=== PATIENT | female | born 1995 | race Caucasian/White ===

== ENCOUNTER 2023-04-20 22:29 | Observation (INO) | payer BC, OTHER ==
[2023-04-20] MEDS ORDERED: Sodium Chloride 0.9% 1000 ML 1,000 ML IV STA (22:57)
[2023-04-20] MEDS ORDERED: Zofran 4 MG/2 ML VIAL IV ONE (23:06)
[2023-04-20] MEDS ORDERED: Sodium Chloride 0.9% 1000 ML 1,000 ML ONE (23:06)
[2023-04-20] MEDS ORDERED: Zofran 4 MG/2 ML VIAL ONE (23:07)
[2023-04-20 23:11] LABS: BASOPHIL % 0.8 % (0.0-0.4); Basophil (Absolute #) 0.04 x10^3/uL (0-0.4); Eosinophil % 10.2 % (0.00-5.0); Eosinophil (Absolute #) 0.48 x10^3/uL (0-0.5); Hematocrit 42.4 % (35-47); Hemoglobin 14.6 g/dL (12.0-16.0); IMMATURE GRAN # 0.01 x10^3u/L (0.00-0.03); IMMATURE GRAN % 0.2 % (0.00-0.4); Lymphocyte (Absolute #) 1.25 x10^3/uL (1.0-4.6); Lymphocytes % 26.5 % (24.0-44.0); Mean Cell Volume 92.6 fL (78-100); Mean Corpuscular Hemoglobin 31.9 pg (26-32); Mean Corpuscular Hgb Concent. 34.4 g/dL (32-36); Mean Platelet Volume 9.2 fL (7.5-11.0); Monocyte (Absolute #) 0.44 x10^3/uL (0.0-1.3); Monocytes % 9.3 % (0.0-12.0); Platelet Count 277 x10^3/uL (150-450); Red Blood Count 4.58 x10^6/uL (4.1-5.4); Red Cell Distribution Width 10.8 % (11.5-14.0); White Blood Count 4.7 x10^3/uL (4.0-10.5)
--- NOTE | 2023-04-20 23:17 | XRAY ---
CLINICAL HISTORY: FALL TECHNIQUE: Thin axial CT of the cervical spine was performed with sagittal and coronal reconstructions without contrast. COMPARISON: None FINDINGS: Straightening of the cervical spine due to muscle spasm. The vertebral bodies are normal in height. No lytic or sclerotic bone lesion. The craniovertebral measures are unremarkable. Intervertebral disc spaces are well maintained. No fracture or dislocation is seen. No evidence of facet joint hypertrophy or neural formainal stenosis. Pre-vertebral soft tissues are within normal limits. An incidental note is made of mild mucosal thickening in bilateral maxillary sinuses and right ethmoid air cells with a small air-fluid level in the right maxillary sinus. IMPRESSION: No evidence of acute fracture or dislocation. Straightening of the cervical spine due to muscle spasm. Electronically Signed by: Halreen Turner MD. (04/20/2023 23:14:12 EST)
--- NOTE | 2023-04-20 23:17 | XRAY ---
CLINICAL HISTORY: syncope TECHNIQUE: Axial non-contrast CT scan of the brain was performed from the skull base to the high parietal region. Coronal and sagittal reconstructions were also obtained. COMPARISON: None. FINDINGS: The visualized brain parenchyma shows a normal appearance. Martinez-white matter differentiation is maintained. No midline shifts or deformity. No intracerebral or extra axial hematoma. Normal size and configuration of the cerebral ventricles. Normal CT appearance of the posterior fossa structures namely the cerebellar hemispheres, brainstem and cerebellar peduncles. The IACs are unremarkable. The cerebello-pontine angles are clear. The osseous structures in the skull base are unremarkable. No definite calvarium fractures. The scanned paranasal sinuses show mild mucosal thickening in bilateral maxillary sinuses. IMPRESSION: No CT delineable acute abnormalities are seen in present study. Early changes of stroke may not be detected on a CT scan. If strong clinical suspicion of stroke then suggest MRI with diffusion-weighted imaging. The [facility] was called at [phone] at 10:09 PM [employer], 04/20/2023, and Dr. Hylton Porter been informed about negative results for stroke. Electronically Signed by: Harleen Turner MD. (04/20/2023 23:13:45 EST)
[2023-04-20 23:24] LABS: ACETAMINOPHEN < 10 ug/ml (10-30); ALBUMIN 4.7 g/dL (3.5-5.0); ALKALINE PHOSPHATASE 83 U/L (38-126); ANION GAP 16.4 MEQ/L (5-15); BLOOD UREA NITROGEN 6 mg/dL (7-17); CHLORIDE 103 mmol/L (98-107); Calcium 9.1 mg/dL (8.4-10.2); Carbon Dioxide 22 mmol/L (22-30); EST GLOMERULAR FILTRATION RATE 124.5 ML/MIN; ETHYL ALCOHOL 251 mg/dL (0-10); Glucose 84 mg/dL (74-106); Potassium 3.9 mmol/L (3.5-5.1); SALICYLATE < 1.0 mg/dL (2-20); SGOT/AST 45 U/L (14-36); SGPT/ALT 45 U/L (0-35); SODIUM 137 mmol/L (137-145); Total Protein 7.8 g/dL (6.3-8.2)
[2023-04-20 23:28] LABS: HCG SERUM TEST NEGATIVE (NEGATIVE)
[2023-04-20 23:32] LABS: Amphetamine,Urine NEGATIVE (NEGATIVE); Barbiturate,Urine NEGATIVE (NEGATIVE); Benzodiazepine,Urine NEGATIVE (NEGATIVE); Cocaine,Urine NEGATIVE (NEGATIVE); Methadone,Urine NEGATIVE (NEGATIVE); Opiate,Urine NEGATIVE (NEGATIVE); PCP,Urine NEGATIVE (NEGATIVE); THC,Urine NEGATIVE (NEGATIVE)
[2023-04-20 23:56] LABS: INFLUENZA A NEGATIVE (NEGATIVE); INFLUENZA B NEGATIVE (NEGATIVE); RESPIRATORY SYNCTIAL VIRUS NEGATIVE (NEGATIVE); SARS-CoV-2 Xpert Express NEGATIVE (NEGATIVE)
--- NOTE | 2023-04-21 00:07 | ERPHSYRPT ---
- History of Present Illness Source: patient, family, EMS Exam Limitations: clinical condition Patient Subjective Stated Complaint: vomiting, syncope Triage Nursing Assessment: pt brought in by EMS. Pt was found down at home, difficult to arouse. Upon arrival to ER, pt's eyes were open and awake, pt going in and out of consciousness. Pt's pupils 4mm, reactive. Pt has had nausea and vomiting at home today, hasn't ate much today. Pt's hands and legs are retracted. Lungs clear, heart tones reg. Pt's eyelids are both swollen and tongue is slightly swollen. Physician History: 28-year-old female who presents per EMS with altered mental status. EMS stated that patient was found on the floor by unresponsive after initially feeling nauseated. Patient's children are home with the flu and patient has not felt well all day. Patient arrived to the ER with a good airway and vital signs but with intermittent altered level consciousness. Patient was raised to the radiology suite where a CT was performed of her head which was negative per rad. denies any new medications. Timing/Duration: today Severity: moderate Character of Deficits: other (Intermittent altered level consciousness.) Baseline/Normal Cognition: alert oriented x 3 Current Cognition: poor alertness (Very somnolent and mildly confused) Associated Symptoms: confusion, nausea, vomiting Allergies/Adverse Reactions: No Known Drug Allergies Allergy (Verified 04/21/23 05:33) Home Medications: Dextroamphetamine/Amphetamine [Adderall Xr 10 mg Capsule] 10 mg PO DAILY 04/20/23 [History] Hx Tetanus, Diphtheria Vaccination/Date Given: (unknown) Hx Influenza Vaccination/Date Given: No Hx Pneumococcal Vaccination/Date Given: No Immunizations Up to Date: No Travel Risk - International Travel Have you traveled outside of the country in past 3 weeks: No - Coronavirus Screening Are you exhibiting any of the following symptoms?: Yes Symptoms: Vomiting/Diarrhea, Headaches/Body Aches/Fatigue Close contact with a COVID-19 positive Pt in past 14-21 Days: No - Vaccine Status Have you recieved a Covid-19 vaccination: No - Review of Systems Constitutional: No Symptoms, Malaise Eyes: No Symptoms Ears, Nose, & Throat: No Symptoms Respiratory: No Symptoms Cardiac: No Symptoms Abdominal/Gastrointestinal: No Symptoms, Nausea, Vomiting Genitourinary Symptoms: No Symptoms Musculoskeletal: No Symptoms Skin: No Symptoms Neurological: Other (Altered level consciousness) Psychological: No Symptoms Endocrine: No Symptoms Hematologic/Lymphatic: No Symptoms Immunological/Allergic: No Symptoms - Past Medical History Pertinent Past Medical History: Yes Neurological History: No Pertinent History ENT History: No Pertinent History Cardiac History: No Pertinent History Respiratory History: No Pertinent History Endocrine Medical History: No Pertinent History Musculoskeletal History: No Pertinent History GI Medical History: No Pertinent History History: No Pertinent History Psycho-Social History: Attention Deficit Disorder Female Reproductive Disorders: No Pertinent History Other Medical History: dog bite. seasonal allergies - Past Surgical History Past Surgical History: Yes Neuro Surgical History: No Pertinent History Cardiac: No Pertinent History Respiratory: No Pertinent History Gastrointestinal: No Pertinent History Genitourinary: No Pertinent History Musculoskeletal: Orthopedic Surgery Female Surgical History: No Pertinent History Other Surgical History: throat nodules. fx arm - Social History Smoking Status: Former smoker Exposure to second hand smoke: No Drug Use: none Patient Lives Alone: No - Female History Hx Last Menstrual Period: 04/16/23 Hx Now: No - Nursing Vital Signs Nursing Vital Signs: Initial Vital Signs Pulse Rate 107 H 04/20/23 22:57 Respiratory Rate 18 04/20/23 22:57 Blood Pressure 134/92 04/20/23 22:57 O2 Sat by Pulse Oximetry 97 04/20/23 22:57 Pain Scale Pain Intensity 0 Mildly hypertensive/tachycardic - [place] Coma Scale Best Eye Response ([place]): (3) open to voice Best Verbal Response ([place]): (4) confused conversation Best Motor Response ([place]): (6) obeys commands [place] Total: 13 - Physical Exam General Appearance: lethargy Eye Exam: bilateral eye: normal inspection, PERRL, EOMI Ears, Nose, Throat Exam: normal ENT inspection, TMs normal, pharynx normal, moist mucous membranes Neck Exam: normal inspection, non-tender, supple, full range of motion, No meningismus, No mass, No Brudzinski, No Kernig's, No carotid bruit Respiratory: normal breath sounds, lungs clear, airway intact Cardiovascular: tachycardia Gastrointestinal: soft, normal bowel sounds Back Exam: normal inspection, normal range of motion Extremity Exam: normal inspection, normal range of motion Peripheral Pulses: carotid (R): 2+, carotid (L): 2+ Mental Status: depressed affect, lethargy brick layer Exam: normal speech, PERRL Motor/Sensory: no motor deficit, no sensory deficit, no pronator drift, negative Babinski's sign DTR: bicep (R): 2+, bicep (L): 2+ Skin Exam: normal color, warm, dry, No rash SpO2 Interpretation: normal SpO2: 98 O2 Delivery: Room Air - Course Nursing assessment & vital signs reviewed: Yes EKG Interpreted by Me: RATE (Sinus tachycardia/rate 101/normal QT-QTc/flat T waves/incomplete right bundle branch block/interpreted contemporaneously per ER physician.) - CT Exams Head CT Interpretation: Tele-radiologist Report (CT of the head negative per teleread/CTA of the head negative per telerad/CT of the neck negative per telerad) Cervical Spine CT Interpretation: Tele-radiologist Report (CT C-spine negative per telerad) Ordered Tests: Active Orders 24 hr Category Date Time Status EKG-ER Only STAT Care 04/20/23 22:33 Completed House Regular Diet Diet 04/21/23 Breakfast Active CERVICAL SPINE WO CONTRAST [CT] Stat Exams 04/20/23 22:[address] ANGIOGRAPHY NECK [CT] Stat Exams 04/21/23 01:54 Completed CTA HEAD W AND/OR WO CONTRAST [CT] Stat Exams 04/21/23 01:51 Completed HEAD WITHOUT CONTRAST [CT] Stat Exams 04/20/23 22:31 Completed ACETAMINOPHEN Stat Lab 04/20/23 23:00 Completed BMP Stat Lab 04/21/23 01:15 Completed CBC W DIFF Stat Lab 04/20/23 23:00 Completed CMP Stat Lab 04/20/23 23:00 Completed CULTURE,URINE Stat Lab 04/20/23 22:59 Received ETHYL ALCOHOL Stat Lab 04/20/23 23:00 Completed ETHYL ALCOHOL Stat Lab 04/21/23 01:15 Completed HCG QUALITATIVE, SERUM Stat Lab 04/20/23 23:00 Completed Lactic Acid Stat Lab 04/20/23 23:00 Completed Lactic Acid Stat Lab 04/21/23 01:10 Completed SALICYLATE Stat Lab 04/20/23 23:00 Completed TROPONIN Q4H Lab 04/21/23 01:15 Completed TROPONIN Q4H Lab 04/21/23 05:15 Ordered TROPONIN Q4H Lab 04/21/23 09:15 Ordered UA W/RFX UR CULTURE Stat Lab 04/20/23 22:59 Completed Urine Triage Profile Stat Lab 04/20/23 22:59 Completed Transfer Order Routine Transfer 04/21/23 Completed Medication Summary Discontinued Medications Generic Name Dose Route Start Last Admin Trade Name Marck PRN Reason Stop Dose Admin Sodium Chloride 1,000 mls @ 999 mls/hr 04/20/23 22:57 04/20/23 23:57 Sodium Chloride 0.9% 1000 Ml IV 04/20/23 23:57 Infused .Q1H1M STA Infusion Sodium Chloride Confirm 04/20/23 23:06 Sodium Chloride 0.9% 1000 Ml Administered 04/20/23 23:07 Dose 1,000 mls @ ud .ROUTE .STK-MED ONE Sodium Chloride 1,000 mls @ 999 mls/hr 04/21/23 00:40 04/21/23 01:40 Sodium Chloride 0.9% 1000 Ml IV 04/21/23 01:40 Infused .Q1H1M STA Infusion Sodium Chloride Confirm 04/21/23 00:43 Sodium Chloride 0.9% 1000 Ml Administered 04/21/23 00:44 Dose 1,000 mls @ ud .ROUTE .STK-MED ONE Levetiracetam 3,000 mg/ 130 mls @ 220 mls/hr 04/21/23 04:27 04/21/23 05:03 Dextrose IV 04/21/23 05:02 Not Given STAT ONE Levetiracetam 1,000 mg/ 110 mls @ 220 mls/hr 04/21/23 04:29 04/21/23 04:47 Dextrose IV 04/21/23 04:58 220 mls/hr STAT ONE Administration Dextrose Confirm 04/21/23 04:34 D5w 100ml Mini Bag 100 Ml Administered 04/21/23 04:35 Dose 100 mls @ ud IV .STK-MED ONE Levetiracetam Confirm 04/21/23 04:33 Levetiracetam 500 Mg/5 Ml Vial Administered 04/21/23 04:34 Dose 1,000 mg .ROUTE .STK-MED ONE Lorazepam 1 mg 04/21/23 04:26 04/21/23 04:47 Lorazepam 2 Mg/1 Ml 2 Mg Vial IV 04/21/23 04:27 1 mg STAT ONE Administration Lorazepam Confirm 04/21/23 04:32 Lorazepam 2 Mg/1 Ml 2 Mg Vial Administered 04/21/23 04:33 Dose 2 mg .ROUTE .STK-MED ONE Ondansetron HCl 4 mg 04/20/23 23:06 04/20/23 23:08 Ondansetron Hcl 4 Mg/2 Ml Vial IV 04/20/23 23:07 4 mg STAT ONE Administration Ondansetron HCl Confirm 04/20/23 23:07 Ondansetron Hcl 4 Mg/2 Ml Vial Administered 04/20/23 23:08 Dose 4 mg .ROUTE .STK-MED ONE Thiamine HCl 300 mg 04/21/23 04:34 04/21/23 04:54 Thiamine Hcl 100 Mg Tablet PO 04/21/23 04:35 300 mg STAT ONE Administration Lab/Rad Data: Laboratory Result Diagrams 04/20/23 23:00 04/21/23 01:15 Laboratory Results 04/21/23 04/21/23 04/21/23 Range/Units 03:15 01:15 01:15 WBC (4.0-10.5) x10^3/uL RBC (4.1-5.4) x10^6/uL Hgb (12.0-16.0) g/dL Hct (35-47) % MCV (78-100) fL MCH (26-32) pg MCHC (32-36) g/dL RDW (11.5-14.0) % Plt Count (150-450) x10^3/uL MPV (7.5-11.0) fL Gran % (36.0-66.0) % Immature Gran % (Auto) (0.00-0.4) % Nucleat RBC Rel Count (0.00-0.1) % Eos # (Auto) (0-0.5) x10^3/uL Immature Gran # (Auto) (0.00-0.03) x10^3u/L Absolute Lymphs (auto) (1.0-4.6) x10^3/uL Absolute Monos (auto) (0.0-1.3) x10^3/uL Absolute Nucleated RBC (0.00-0.01) x10^3u/L Lymphocytes % (24.0-44.0) % Monocytes % (0.0-12.0) % Eosinophils % (0.00-5.0) % Basophils % (0.0-0.4) % Absolute Granulocytes (1.4-6.9) x10^3/uL Basophils # (0-0.4) x10^3/uL Sodium 142 (137-145) mmol/L Potassium 3.8 (3.5-5.1) mmol/L Chloride 114 H (98-107) mmol/L Carbon Dioxide 22 (22-30) mmol/L Anion Gap 10.0 (5-15) MEQ/L BUN 6 L (7-17) mg/dL Creatinine 0.55 (0.52-1.04) mg/dL Estimated GFR 127.2 ML/MIN Glucose 92 (74-106) mg/dL Lactic Acid (0.4-2.0) Calcium 8.0 L (8.4-10.2) mg/dL Total Bilirubin (0.2-1.3) mg/dL AST (14-36) U/L ALT (0-35) U/L Alkaline Phosphatase (38-126) U/L Ammonia < 9 L (9-30) umol/L Troponin I < 0.012 (0.000-0.034) ng/mL Serum Total Protein (6.3-8.2) g/dL Albumin (3.5-5.0) g/dL Serum HCG, Qual (NEGATIVE) Urine Color (Yellow) Urine Appearance (Clear) Urine pH (4.6-8.0) Ur Specific [place] (1.005-1.030) Urine Protein (Negative) Urine Glucose (UA) (Negative) mg/dL Urine Ketones (Negative) Urine Blood (Negative) Urine Nitrite (Negative) Urine Bilirubin (Negative) Urine Urobilinogen (0.2) mg/dL Ur Leukocyte Esterase (Negative) U Hyaline Cast (Auto) (0-2) /LPF Urine Microscopic RBC (0-5) /HPF Urine Microscopic WBC (0-5) /HPF Ur Epithelial Cells (None Seen) /HPF Urine Bacteria (None Seen) /HPF Urine Culture Reflexed (NO) Salicylates (2-20) mg/dL Urine Opiates Level (NEGATIVE) Ur Methadone (NEGATIVE) Acetaminophen (10-30) ug/ml Urine Barbiturates (NEGATIVE) Ur Phencyclidine (PCP) (NEGATIVE) Urine Amphetamine (NEGATIVE) U Benzodiazepine Level (NEGATIVE) Urine Cocaine (NEGATIVE) Urine Marijuana (THC) (NEGATIVE) Ethyl Alcohol 174 H (0-10) mg/dL Influenza Type A Ag (NEGATIVE) Influenza Type B Ag (NEGATIVE) RSV (PCR) (NEGATIVE) SARS-CoV-2 (PCR) (NEGATIVE) 04/21/23 04/20/23 04/20/23 Range/Units 01:10 23:15 23:00 WBC (4.0-10.5) x10^3/uL RBC (4.1-5.4) x10^6/uL Hgb (12.0-16.0) g/dL Hct (35-47) % MCV (78-100) fL MCH (26-32) pg MCHC (32-36) g/dL RDW (11.5-14.0) % Plt Count (150-450) x10^3/uL MPV (7.5-11.0) fL Gran % (36.0-66.0) % Immature Gran % (Auto) (0.00-0.4) % Nucleat RBC Rel Count (0.00-0.1) % Eos # (Auto) (0-0.5) x10^3/uL Immature Gran # (Auto) (0.00-0.03) x10^3u/L Absolute Lymphs (auto) (1.0-4.6) x10^3/uL Absolute Monos (auto) (0.0-1.3) x10^3/uL Absolute Nucleated RBC (0.00-0.01) x10^3u/L Lymphocytes % (24.0-44.0) % Monocytes % (0.0-12.0) % Eosinophils % (0.00-5.0) % Basophils % (0.0-0.4) % Absolute Granulocytes (1.4-6.9) x10^3/uL Basophils # (0-0.4) x10^3/uL Sodium (137-145) mmol/L Potassium (3.5-5.1) mmol/L Chloride (98-107) mmol/L Carbon Dioxide (22-30) mmol/L Anion Gap (5-15) MEQ/L BUN (7-17) mg/dL Creatinine (0.52-1.04) mg/dL Estimated GFR ML/MIN Glucose (74-106) mg/dL Lactic Acid 1.8 (0.4-2.0) Calcium (8.4-10.2) mg/dL Total Bilirubin (0.2-1.3) mg/dL AST (14-36) U/L ALT (0-35) U/L Alkaline Phosphatase (38-126) U/L Ammonia (9-30) umol/L Troponin I (0.000-0.034) ng/mL Serum Total Protein (6.3-8.2) g/dL Albumin (3.5-5.0) g/dL Serum HCG, Qual NEGATIVE (NEGATIVE) Urine Color (Yellow) Urine Appearance (Clear) Urine pH (4.6-8.0) Ur Specific [place] (1.005-1.030) Urine Protein (Negative) Urine Glucose (UA) (Negative) mg/dL Urine Ketones (Negative) Urine Blood (Negative) Urine Nitrite (Negative) Urine Bilirubin (Negative) Urine Urobilinogen (0.2) mg/dL Ur Leukocyte Esterase (Negative) U Hyaline Cast (Auto) (0-2) /LPF Urine Microscopic RBC (0-5) /HPF Urine Microscopic WBC (0-5) /HPF Ur Epithelial Cells (None Seen) /HPF Urine Bacteria (None Seen) /HPF Urine Culture Reflexed (NO) Salicylates (2-20) mg/dL Urine Opiates Level (NEGATIVE) Ur Methadone (NEGATIVE) Acetaminophen (10-30) ug/ml Urine Barbiturates (NEGATIVE) Ur Phencyclidine (PCP) (NEGATIVE) Urine Amphetamine (NEGATIVE) U Benzodiazepine Level (NEGATIVE) Urine Cocaine (NEGATIVE) Urine Marijuana (THC) (NEGATIVE) Ethyl Alcohol (0-10) mg/dL Influenza Type A Ag NEGATIVE (NEGATIVE) Influenza Type B Ag NEGATIVE (NEGATIVE) RSV (PCR) NEGATIVE (NEGATIVE) SARS-CoV-2 (PCR) NEGATIVE (NEGATIVE) 04/20/23 04/20/23 04/20/23 Range/Units 23:00 23:00 23:00 WBC 4.7 (4.0-10.5) x10^3/uL RBC 4.58 (4.1-5.4) x10^6/uL Hgb 14.6 (12.0-16.0) g/dL Hct 42.4 (35-47) % MCV 92.6 (78-100) fL MCH 31.9 (26-32) pg MCHC 34.4 (32-36) g/dL RDW 10.8 L (11.5-14.0) % Plt Count 277 (150-450) x10^3/uL MPV 9.2 (7.5-11.0) fL Gran % 53.0 (36.0-66.0) % Immature Gran % (Auto) 0.2 (0.00-0.4) % Nucleat RBC Rel Count 0.0 (0.00-0.1) % Eos # (Auto) 0.48 (0-0.5) x10^3/uL Immature Gran # (Auto) 0.01 (0.00-0.03) x10^3u/L Absolute Lymphs (auto) 1.25 (1.0-4.6) x10^3/uL Absolute Monos (auto) 0.44 (0.0-1.3) x10^3/uL Absolute Nucleated RBC 0.00 (0.00-0.01) x10^3u/L Lymphocytes % 26.5 (24.0-44.0) % Monocytes % 9.3 (0.0-12.0) % Eosinophils % 10.2 H (0.00-5.0) % Basophils % 0.8 (0.0-0.4) % Absolute Granulocytes 2.50 (1.4-6.9) x10^3/uL Basophils # 0.04 (0-0.4) x10^3/uL Sodium 137 (137-145) mmol/L Potassium 3.9 (3.5-5.1) mmol/L Chloride 103 (98-107) mmol/L Carbon Dioxide 22 (22-30) mmol/L Anion Gap 16.4 H (5-15) MEQ/L BUN 6 L (7-17) mg/dL Creatinine 0.60 (0.52-1.04) mg/dL Estimated GFR 124.5 ML/MIN Glucose 84 (74-106) mg/dL Lactic Acid 2.3 H (0.4-2.0) Calcium 9.1 (8.4-10.2) mg/dL Total Bilirubin 0.30 (0.2-1.3) mg/dL AST 45 H (14-36) U/L ALT 45 H (0-35) U/L Alkaline Phosphatase 83 (38-126) U/L Ammonia (9-30) umol/L Troponin I (0.000-0.034) ng/mL Serum Total Protein 7.8 (6.3-8.2) g/dL Albumin 4.7 (3.5-5.0) g/dL Serum HCG, Qual (NEGATIVE) Urine Color (Yellow) Urine Appearance (Clear) Urine pH (4.6-8.0) Ur Specific [place] (1.005-1.030) Urine Protein (Negative) Urine Glucose (UA) (Negative) mg/dL Urine Ketones (Negative) Urine Blood (Negative) Urine Nitrite (Negative) Urine Bilirubin (Negative) Urine Urobilinogen (0.2) mg/dL Ur Leukocyte Esterase (Negative) U Hyaline Cast (Auto) (0-2) /LPF Urine Microscopic RBC (0-5) /HPF Urine Microscopic WBC (0-5) /HPF Ur Epithelial Cells (None Seen) /HPF Urine Bacteria (None Seen) /HPF Urine Culture Reflexed (NO) Salicylates < 1.0 L (2-20) mg/dL Urine Opiates Level (NEGATIVE) Ur Methadone (NEGATIVE) Acetaminophen < 10 L (10-30) ug/ml Urine Barbiturates (NEGATIVE) Ur Phencyclidine (PCP) (NEGATIVE) Urine Amphetamine (NEGATIVE) U Benzodiazepine Level (NEGATIVE) Urine Cocaine (NEGATIVE) Urine Marijuana (THC) (NEGATIVE) Ethyl Alcohol 251 H (0-10) mg/dL Influenza Type A Ag (NEGATIVE) Influenza Type B Ag (NEGATIVE) RSV (PCR) (NEGATIVE) SARS-CoV-2 (PCR) (NEGATIVE) 04/20/23 04/20/23 Range/Units 22:59 22:59 WBC (4.0-10.5) x10^3/uL RBC (4.1-5.4) x10^6/uL Hgb (12.0-16.0) g/dL Hct (35-47) % MCV (78-100) fL MCH (26-32) pg MCHC (32-36) g/dL RDW (11.5-14.0) % Plt Count (150-450) x10^3/uL MPV (7.5-11.0) fL Gran % (36.0-66.0) % Immature Gran % (Auto) (0.00-0.4) % Nucleat RBC Rel Count (0.00-0.1) % Eos # (Auto) (0-0.5) x10^3/uL Immature Gran # (Auto) (0.00-0.03) x10^3u/L Absolute Lymphs (auto) (1.0-4.6) x10^3/uL Absolute Monos (auto) (0.0-1.3) x10^3/uL Absolute Nucleated RBC (0.00-0.01) x10^3u/L Lymphocytes % (24.0-44.0) % Monocytes % (0.0-12.0) % Eosinophils % (0.00-5.0) % Basophils % (0.0-0.4) % Absolute Granulocytes (1.4-6.9) x10^3/uL Basophils # (0-0.4) x10^3/uL Sodium (137-145) mmol/L Potassium (3.5-5.1) mmol/L Chloride (98-107) mmol/L Carbon Dioxide (22-30) mmol/L Anion Gap (5-15) MEQ/L BUN (7-17) mg/dL Creatinine (0.52-1.04) mg/dL Estimated GFR ML/MIN Glucose (74-106) mg/dL Lactic Acid (0.4-2.0) Calcium (8.4-10.2) mg/dL Total Bilirubin (0.2-1.3) mg/dL AST (14-36) U/L ALT (0-35) U/L Alkaline Phosphatase (38-126) U/L Ammonia (9-30) umol/L Troponin I (0.000-0.034) ng/mL Serum Total Protein (6.3-8.2) g/dL Albumin (3.5-5.0) g/dL Serum HCG, Qual (NEGATIVE) Urine Color Yellow (Yellow) Urine Appearance Clear (Clear) Urine pH 7.0 (4.6-8.0) Ur Specific [place] <=1.005 (1.005-1.030) Urine Protein Negative (Negative) Urine Glucose (UA) Negative (Negative) mg/dL Urine Ketones Negative (Negative) Urine Blood Negative (Negative) Urine Nitrite Negative (Negative) Urine Bilirubin Negative (Negative) Urine Urobilinogen 0.2 (0.2) mg/dL Ur Leukocyte Esterase Negative (Negative) U Hyaline Cast (Auto) NONE SEEN (0-2) /LPF Urine Microscopic RBC 0-2 (0-5) /HPF Urine Microscopic WBC 0-2 (0-5) /HPF Ur Epithelial Cells None Seen (None Seen) /HPF Urine Bacteria None Seen (None Seen) /HPF Urine Culture Reflexed ORDERED SEPARATELY (NO) Salicylates (2-20) mg/dL Urine Opiates Level NEGATIVE (NEGATIVE) Ur Methadone NEGATIVE (NEGATIVE) Acetaminophen (10-30) ug/ml Urine Barbiturates NEGATIVE (NEGATIVE) Ur Phencyclidine (PCP) NEGATIVE (NEGATIVE) Urine Amphetamine NEGATIVE (NEGATIVE) U Benzodiazepine Level NEGATIVE (NEGATIVE) Urine Cocaine NEGATIVE (NEGATIVE) Urine Marijuana (THC) NEGATIVE (NEGATIVE) Ethyl Alcohol (0-10) mg/dL Influenza Type A Ag (NEGATIVE) Influenza Type B Ag (NEGATIVE) RSV (PCR) (NEGATIVE) SARS-CoV-2 (PCR) (NEGATIVE) - Progress Progress: improved Progress Note: 04/21/23 04:36 Nursing note and vital signs reviewed. Initial history through EMS. No food or housing insecurity noted. Patient arrived somewhat lethargic with intermittent possible seizure activity.Initial CT of the head and C-spine was negative per telerad. Patient's neurologic status improved gradually without any noticeable focal deficit. Patient alcohol level found to be 251 which decreased to 170 after IV fluids and time. CTA of the head and neck was negative per telerad. Patient neurologic exam normalized over time.Teleneuro consult was obtained,Dr. Fonseca, which determined the patient possibly had a alcohol withdrawal seizure and recommended observation admit overnight with MRI/MRI of the brain in the morning, IV Ativan, 300 mg of p.o. thiamine 3 times daily, 3 g of IV Keppra, and 750 mg p.o. Keppra twice daily. Dr. Mercado Graciously agreed observe the patient overnight. 04/21/23 04:42 04/21/23 06:40 Counseled pt/family regarding: lab results, diagnosis, rad results Medical Desision Making - Independent Historian Additional History obtained from: Spouse, Mother - Discussion of managment Care discussed with:: specialist Reviewed:: Test results, Need for additional workup Agreed on:: Treatment plan, place in obs Will see patient: in hospital - Diagnostic Testing Diagnostic test were ordered, analyzed, and reviewed by me: Yes Radiological Interpretation: Reviewed by me - Risk of complications The pt has a high risk of morbidity or mortality based on: Drug therapy requiring intensive monitoring for toxicity - Departure Departure Disposition: Observation Clinical Impression: Alcohol related seizure Condition: Stable Critical Care Time: Yes Critical Care Time(excluding separately billable procedures): Critical 30-74 mins
[2023-04-21 00:13] LABS: Appearance Clear (Clear); Bacteria None Seen /HPF (None Seen); Bilirubin Negative (Negative); Blood Negative (Negative); Epithelial Cells None Seen /HPF (None Seen); Glucose, Urine Negative (Negative); Hyaline Casts NONE SEEN /LPF (0-2); Ketones Negative (Negative); Leukocyte Esterase Negative (Negative); Nitrite Negative (Negative); Protein,Urine Dip Negative (Negative); RBC 0-2 /HPF (0-5); Specific Gravity <=1.005 (1.005-1.030); Urobilinogen 0.2 mg/dL (0.2); WBC 0-2 /HPF (0-5)
[2023-04-21 00:14] LABS: ADD URINE CULTURE? ORDERED SEPARATELY (NO)
[2023-04-21] MEDS ORDERED: Sodium Chloride 0.9% 1000 ML 1,000 ML IV STA (00:40)
[2023-04-21] MEDS ORDERED: Sodium Chloride 0.9% 1000 ML 1,000 ML ONE ×2 (00:43→12:15)
[2023-04-21 01:39] LABS: Creatinine 1 0.55 mg/dL (0.52-1.04); EST GLOMERULAR FILTRATION RATE 127.2 ML/MIN; Potassium 3.8 mmol/L (3.5-5.1)
--- NOTE | 2023-04-21 03:40 | XRAY ---
CLINICAL HISTORY: mental status changes TECHNIQUE: Axial sections of contrast-enhanced CT angio scan of the brain were performed from the skull base to the high parietal region. Sagittal and coronal reconstructed images were obtained. 100 CC of Isovue 370 was given as an IV contrast. COMPARISON: 04/20/2023. FINDINGS: There is a normal course and caliber of the internal carotid arteries and the anterior and middle cerebral arteries bilaterally. The posterior communicating arteries are developed. There is a normal course and caliber of both vertebral arteries, vertebrobasilar junction, basilar artery, and posterior cerebral arteries. There is no evidence of aneurysmal dilatation or vascular malformation of the intracranial arteries. The opacified venous dural sinuses reveal patent superior sagittal sinus, straight sinus and right transverse sinus. The left transverse sinus is hypoplastic. The internal cerebral veins are also patent. The visualized brain parenchyma shows a normal appearance. [place]-white matter differentiation is maintained. No midline shifts or deformity. No intracerebral or extra axial hematoma. Normal size and configuration of the cerebral ventricles. Normal CT appearance of the posterior fossa structures namely the cerebellar hemispheres, brainstem and cerebellar peduncles. The IACs are unremarkable. The cerebello-pontine angles are clear. The osseous structures in the skull base are unremarkable. No definite calvarium fractures. The scanned paranasal sinuses show mild mucosal thickening in bilateral maxillary sinuses. IMPRESSION: 1. Normal CTA of the intracranial arteries with no evidence of occlusions, stenosis or aneurysmal dilations. 2. No evidence of intracerebral or extraxial hematomas. Electronically Signed by: Harleen Turner MD. (04/21/2023 03:34:42 EST)
--- NOTE | 2023-04-21 03:44 | XRAY ---
CLINICAL HISTORY: mental status changes TECHNIQUE: Axial sections of the CT Angiography neck were obtained after the administration of intravenous contrast. Reformatted coronal and sagittal images were acquired. 3D reconstructions were also obtained. COMPARISON: None. FINDINGS: CTA of the neck: No hemodynamically significant stenosis of the common carotid, carotid bifurcation, or internal carotid arteries is seen. The extracranial portions of the vertebral basilar system are preserved without stenosis. No aneurysmal dilatation or dissection is seen The tracheal lumen is patent. The spine is unremarkable. IMPRESSION: No hemodynamically significant stenosis, aneurysmal dilatation, or dissection is seen. Electronically Signed by: Harleen Turner MD. (04/21/2023 03:38:45 EST)
[2023-04-21] MEDS ORDERED: Ativan 2 MG/1 ML VIAL IV ONE (04:26)
[2023-04-21] MEDS ORDERED: KEPPRA IV ONE (04:27)
[2023-04-21] MEDS ORDERED: D5W MINI IV ONE (04:27)
[2023-04-21] MEDS ORDERED: Keppra 500 MG/5 ML*** 1,000 MG in D5w 100ML Mini Bag 100 ML 100 ML IV ONE (04:29)
[2023-04-21] MEDS ORDERED: Ativan 2 MG/1 ML VIAL ONE (04:32)
[2023-04-21] MEDS ORDERED: Keppra 500 MG/5 ML ONE (04:33)
[2023-04-21] MEDS ORDERED: D5w 100ML Mini Bag 100 ML 100 ML IV ONE (04:34)
[2023-04-21] MEDS ORDERED: VITAMIN B-1 100 MG PO ONE (04:34)
[2023-04-21] MEDS ORDERED: Nicoderm CQ 21 MG TOP PRN (07:48)
[2023-04-21] MEDS ORDERED: TYLENOL 325 MG PO PRN (07:48)
[2023-04-21] MEDS ORDERED: Zofran 4 MG/2 ML VIAL IV PRN (07:48)
[2023-04-21] MEDS ORDERED: Dextrose 5%-NS IV Solution 1000 ML 1,000 ML IV SCH (08:00)
[2023-04-21] MEDS ORDERED: THERAGRAN MULTIVITAMIN PO SCH (10:00)
[2023-04-21] MEDS ORDERED: VITAMIN B-1 100 MG PO SCH (10:00)
[2023-04-21] MEDS ORDERED: FOLATE 1 MG PO SCH (10:00)
[2023-04-21] MEDS: Keppra 250 MG PO SCH ×2 (10:21→12:21)
[2023-04-21] MEDS: Ativan 1 MG PO PRN ×2 (11:55→13:09)
[2023-04-21] MEDS ORDERED: Sodium Chloride 0.9% 1000 ML 1,000 ML IV SCH (12:15)
[2023-04-21 12:24] VITALS: BP 142/94; PULSE 100; RESP 16; TEMP 97.4; O2SAT 98
--- NOTE | 2023-04-21 13:17 | PCM.SSS ---
History of Present Illness - Chief Complaint Chief Complaint: possible seizure Date: 04/21/23 History of Present Illness: is a 28 year old female with a pmhx of ADHD (on Adderall), daily alcohol consumption who presented to ED 04/21/23 via EMS after her found her unresponsive. Patient states she had not been feeling well yesterday with n/v and a sore throat. states the patient went to the restroom and when she did not come back after about 20 mins he went to check on her and he found her unresponsive with curled wrists/balled hands pointed turned in toes (decorticate posturing). Patient states she has recently lost a lot of weight without trying. Unable to state exact weight loss. In ED UDS negative. Alcohol level at 245. Patient states she did not drink yesterday. Neurology consulted with recs for Keppra and MRI. CT head/cervical spine with no acute findings, CTA head/neck with no acute findings. MRI Brain pending. Patient continues with seizure-like activity. EEG unavailable at this facility. Transfer to [facility] accepted by Dr. Bora Valladares for higher level of care. Imaging to be pushed once completed. Patient agreeable to plan and wishes to transfer. - Review of Systems Constitutional: No Symptoms Eyes: No Symptoms Ears, Nose, & Throat: Throat Pain Respiratory: No Symptoms Cardiac: No Symptoms Abdominal/Gastrointestinal: No Symptoms Genitourinary Symptoms: No Symptoms Musculoskeletal: Joint Pain (wrist/hands) Skin: No Symptoms Neurological: Headache, Seizure Psychological: Anxiety Endocrine: No Symptoms Hematologic/Lymphatic: No Symptoms Immunological/Allergic: No Symptoms Medications & Allergies Home Medications: Home Medication List Vits W-Ca,Fe,FA(<1Mg) [] 1 each PO DAILY 05/16/16 [History Confirmed 05/16/16] Dextroamphetamine/Amphetamine [Adderall Xr 10 mg Capsule] 10 mg PO DAILY 04/20/23 [History Confirmed 04/20/23] Allergies/Adverse Reactions: Allergies Allergy/AdvReac Type Severity Reaction Status Date / Time No Known Drug Allergies Allergy Unverified 04/21/23 12:33 - Past Medical History Past Medical History: Yes Neurological History: No Pertinent History ENT History: No Pertinent History Cardiac History: No Pertinent History Respiratory History: No Pertinent History Endocrine Medical History: No Pertinent History Musculoskelatal History: No Pertinent History GI Medical History: No Pertinent History History: No Pertinent History Pyscho-Social History: Attention Deficit Disorder Reproductive Disorders: No Pertinent History Comment: dog bite. seasonal allergies - Female History Hx Last Menstrual Period: 04/16/23 Are you now?: No - Past Surgical History Past Surgical History: Yes Neuro Surgical History: No Pertinent History Cardiac History: No Pertinent History Respiratory Surgery: No Pertinent History GI Surgical History: No Pertinent History Genitourinary Surgical Hx: No Pertinent History Musculskeletal Surgical Hx: Orthopedic Surgery Female Surgical History: No Pertinent History Other Surgical History: throat nodules. fx arm - Social History Smoking Status: Former smoker Exposure to second hand smoke: No Alcohol: Daily Drug Use: none - Physical Exam Vital Signs: Vital Signs - 24 hr Temp Pulse Resp BP BP Pulse Ox 04/21/23 12:00 97.4 F 100 H 16 142/94 98 04/21/23 08:00 97 H 20 121/76 97 04/21/23 06:42 98 04/21/23 05:35 97.2 F 94 H 16 132/85 95 04/21/23 05:00 99 H 16 118/90 95 04/21/23 04:30 120 H 14 125/85 94 L 04/21/23 04:00 104 H 15 123/73 98 04/21/23 03:30 89 20 118/77 96 04/21/23 03:00 92 H 12 125/85 100 04/21/23 02:30 91 H 16 133/93 97 04/21/23 02:01 106 H 17 125/81 97 04/21/23 01:30 111 H 16 122/77 98 04/21/23 01:00 112 H 24 115/69 98 04/21/23 00:30 116 H 17 110/67 96 04/21/23 00:00 107 H 14 109/65 99 04/20/23 23:30 114 H 20 118/70 99 04/20/23 23:00 110 H 20 118/70 98 04/20/23 22:57 107 H 18 134/92 97 General Appearance: no apparent distress Neurologic Exam: alert, oriented x 3, cooperative Eye Exam: PERRL/EOMI Ears, Nose, Throat Exam: normal ENT inspection Neck Exam: normal inspection Respiratory Exam: normal breath sounds, lungs clear Cardiovascular Exam: regular rate/rhythm, normal heart sounds Gastrointestinal/Abdomen Exam: soft, normal bowel sounds Pelvic Exam: not done Rectal Exam: deferred Back Exam: normal inspection Extremity Exam: other (witnessed decorticate posturing) Skin Exam: normal color Results - Labs Lab/Micro Results: Lab Results-Last 24 Hours 04/20/23 04/20/23 04/20/23 Range/Units 22:59 22:59 23:00 WBC 4.7 (4.0-10.5) x10^3/uL RBC 4.58 (4.1-5.4) x10^6/uL Hgb 14.6 (12.0-16.0) g/dL Hct 42.4 (35-47) % MCV 92.6 (78-100) fL MCH 31.9 (26-32) pg MCHC 34.4 (32-36) g/dL RDW 10.8 L (11.5-14.0) % Plt Count 277 (150-450) x10^3/uL MPV 9.2 (7.5-11.0) fL Gran % 53.0 (36.0-66.0) % Immature Gran % (Auto) 0.2 (0.00-0.4) % Nucleat RBC Rel Count 0.0 (0.00-0.1) % Eos # (Auto) 0.48 (0-0.5) x10^3/uL Immature Gran # (Auto) 0.01 (0.00-0.03) x10^3u/L Absolute Lymphs (auto) 1.25 (1.0-4.6) x10^3/uL Absolute Monos (auto) 0.44 (0.0-1.3) x10^3/uL Absolute Nucleated RBC 0.00 (0.00-0.01) x10^3u/L Lymphocytes % 26.5 (24.0-44.0) % Monocytes % 9.3 (0.0-12.0) % Eosinophils % 10.2 H (0.00-5.0) % Basophils % 0.8 (0.0-0.4) % Absolute Granulocytes 2.50 (1.4-6.9) x10^3/uL Basophils # 0.04 (0-0.4) x10^3/uL Sodium (137-145) mmol/L Potassium (3.5-5.1) mmol/L Chloride (98-107) mmol/L Carbon Dioxide (22-30) mmol/L Anion Gap (5-15) MEQ/L BUN (7-17) mg/dL Creatinine (0.52-1.04) mg/dL Estimated GFR ML/MIN Glucose (74-106) mg/dL Lactic Acid (0.4-2.0) Calcium (8.4-10.2) mg/dL Magnesium (1.6-2.3) mg/dL Total Bilirubin (0.2-1.3) mg/dL AST (14-36) U/L ALT (0-35) U/L Alkaline Phosphatase (38-126) U/L Ammonia (9-30) umol/L Troponin I (0.000-0.034) ng/mL Serum Total Protein (6.3-8.2) g/dL Albumin (3.5-5.0) g/dL Serum HCG, Qual (NEGATIVE) Urine Color Yellow (Yellow) Urine Appearance Clear (Clear) Urine pH 7.0 (4.6-8.0) Ur Specific [place] <=1.005 (1.005-1.030) Urine Protein Negative (Negative) Urine Glucose (UA) Negative (Negative) mg/dL Urine Ketones Negative (Negative) Urine Blood Negative (Negative) Urine Nitrite Negative (Negative) Urine Bilirubin Negative (Negative) Urine Urobilinogen 0.2 (0.2) mg/dL Ur Leukocyte Esterase Negative (Negative) U Hyaline Cast (Auto) NONE SEEN (0-2) /LPF Urine Microscopic RBC 0-2 (0-5) /HPF Urine Microscopic WBC 0-2 (0-5) /HPF Ur Epithelial Cells None Seen (None Seen) /HPF Urine Bacteria None Seen (None Seen) /HPF Urine Culture Reflexed ORDERED SEPARATELY (NO) Salicylates (2-20) mg/dL Urine Opiates Level NEGATIVE (NEGATIVE) Ur Methadone NEGATIVE (NEGATIVE) Acetaminophen (10-30) ug/ml Urine Barbiturates NEGATIVE (NEGATIVE) Ur Phencyclidine (PCP) NEGATIVE (NEGATIVE) Urine Amphetamine NEGATIVE (NEGATIVE) U Benzodiazepine Level NEGATIVE (NEGATIVE) Urine Cocaine NEGATIVE (NEGATIVE) Urine Marijuana (THC) NEGATIVE (NEGATIVE) Ethyl Alcohol (0-10) mg/dL Influenza Type A Ag (NEGATIVE) Influenza Type B Ag (NEGATIVE) RSV (PCR) (NEGATIVE) SARS-CoV-2 (PCR) (NEGATIVE) 04/20/23 04/20/23 04/20/23 Range/Units 23:00 23:00 23:00 WBC (4.0-10.5) x10^3/uL RBC (4.1-5.4) x10^6/uL Hgb (12.0-16.0) g/dL Hct (35-47) % MCV (78-100) fL MCH (26-32) pg MCHC (32-36) g/dL RDW (11.5-14.0) % Plt Count (150-450) x10^3/uL MPV (7.5-11.0) fL Gran % (36.0-66.0) % Immature Gran % (Auto) (0.00-0.4) % Nucleat RBC Rel Count (0.00-0.1) % Eos # (Auto) (0-0.5) x10^3/uL Immature Gran # (Auto) (0.00-0.03) x10^3u/L Absolute Lymphs (auto) (1.0-4.6) x10^3/uL Absolute Monos (auto) (0.0-1.3) x10^3/uL Absolute Nucleated RBC (0.00-0.01) x10^3u/L Lymphocytes % (24.0-44.0) % Monocytes % (0.0-12.0) % Eosinophils % (0.00-5.0) % Basophils % (0.0-0.4) % Absolute Granulocytes (1.4-6.9) x10^3/uL Basophils # (0-0.4) x10^3/uL Sodium 137 (137-145) mmol/L Potassium 3.9 (3.5-5.1) mmol/L Chloride 103 (98-107) mmol/L Carbon Dioxide 22 (22-30) mmol/L Anion Gap 16.4 H (5-15) MEQ/L BUN 6 L (7-17) mg/dL Creatinine 0.60 (0.52-1.04) mg/dL Estimated GFR 124.5 ML/MIN Glucose 84 (74-106) mg/dL Lactic Acid 2.3 H (0.4-2.0) Calcium 9.1 (8.4-10.2) mg/dL Magnesium (1.6-2.3) mg/dL Total Bilirubin 0.30 (0.2-1.3) mg/dL AST 45 H (14-36) U/L ALT 45 H (0-35) U/L Alkaline Phosphatase 83 (38-126) U/L Ammonia (9-30) umol/L Troponin I (0.000-0.034) ng/mL Serum Total Protein 7.8 (6.3-8.2) g/dL Albumin 4.7 (3.5-5.0) g/dL Serum HCG, Qual NEGATIVE (NEGATIVE) Urine Color (Yellow) Urine Appearance (Clear) Urine pH (4.6-8.0) Ur Specific [place] (1.005-1.030) Urine Protein (Negative) Urine Glucose (UA) (Negative) mg/dL Urine Ketones (Negative) Urine Blood (Negative) Urine Nitrite (Negative) Urine Bilirubin (Negative) Urine Urobilinogen (0.2) mg/dL Ur Leukocyte Esterase (Negative) U Hyaline Cast (Auto) (0-2) /LPF Urine Microscopic RBC (0-5) /HPF Urine Microscopic WBC (0-5) /HPF Ur Epithelial Cells (None Seen) /HPF Urine Bacteria (None Seen) /HPF Urine Culture Reflexed (NO) Salicylates < 1.0 L (2-20) mg/dL Urine Opiates Level (NEGATIVE) Ur Methadone (NEGATIVE) Acetaminophen < 10 L (10-30) ug/ml Urine Barbiturates (NEGATIVE) Ur Phencyclidine (PCP) (NEGATIVE) Urine Amphetamine (NEGATIVE) U Benzodiazepine Level (NEGATIVE) Urine Cocaine (NEGATIVE) Urine Marijuana (THC) (NEGATIVE) Ethyl Alcohol 251 H (0-10) mg/dL Influenza Type A Ag (NEGATIVE) Influenza Type B Ag (NEGATIVE) RSV (PCR) (NEGATIVE) SARS-CoV-2 (PCR) (NEGATIVE) 04/20/23 04/21/23 04/21/23 Range/Units 23:15 01:10 01:15 WBC (4.0-10.5) x10^3/uL RBC (4.1-5.4) x10^6/uL Hgb (12.0-16.0) g/dL Hct (35-47) % MCV (78-100) fL MCH (26-32) pg MCHC (32-36) g/dL RDW (11.5-14.0) % Plt Count (150-450) x10^3/uL MPV (7.5-11.0) fL Gran % (36.0-66.0) % Immature Gran % (Auto) (0.00-0.4) % Nucleat RBC Rel Count (0.00-0.1) % Eos # (Auto) (0-0.5) x10^3/uL Immature Gran # (Auto) (0.00-0.03) x10^3u/L Absolute Lymphs (auto) (1.0-4.6) x10^3/uL Absolute Monos (auto) (0.0-1.3) x10^3/uL Absolute Nucleated RBC (0.00-0.01) x10^3u/L Lymphocytes % (24.0-44.0) % Monocytes % (0.0-12.0) % Eosinophils % (0.00-5.0) % Basophils % (0.0-0.4) % Absolute Granulocytes (1.4-6.9) x10^3/uL Basophils # (0-0.4) x10^3/uL Sodium 142 (137-145) mmol/L Potassium 3.8 (3.5-5.1) mmol/L Chloride 114 H (98-107) mmol/L Carbon Dioxide 22 (22-30) mmol/L Anion Gap 10.0 (5-15) MEQ/L BUN 6 L (7-17) mg/dL Creatinine 0.55 (0.52-1.04) mg/dL Estimated GFR 127.2 ML/MIN Glucose 92 (74-106) mg/dL Lactic Acid 1.8 (0.4-2.0) Calcium 8.0 L (8.4-10.2) mg/dL Magnesium (1.6-2.3) mg/dL Total Bilirubin (0.2-1.3) mg/dL AST (14-36) U/L ALT (0-35) U/L Alkaline Phosphatase (38-126) U/L Ammonia (9-30) umol/L Troponin I (0.000-0.034) ng/mL Serum Total Protein (6.3-8.2) g/dL Albumin (3.5-5.0) g/dL Serum HCG, Qual (NEGATIVE) Urine Color (Yellow) Urine Appearance (Clear) Urine pH (4.6-8.0) Ur Specific [place] (1.005-1.030) Urine Protein (Negative) Urine Glucose (UA) (Negative) mg/dL Urine Ketones (Negative) Urine Blood (Negative) Urine Nitrite (Negative) Urine Bilirubin (Negative) Urine Urobilinogen (0.2) mg/dL Ur Leukocyte Esterase (Negative) U Hyaline Cast (Auto) (0-2) /LPF Urine Microscopic RBC (0-5) /HPF Urine Microscopic WBC (0-5) /HPF Ur Epithelial Cells (None Seen) /HPF Urine Bacteria (None Seen) /HPF Urine Culture Reflexed (NO) Salicylates (2-20) mg/dL Urine Opiates Level (NEGATIVE) Ur Methadone (NEGATIVE) Acetaminophen (10-30) ug/ml Urine Barbiturates (NEGATIVE) Ur Phencyclidine (PCP) (NEGATIVE) Urine Amphetamine (NEGATIVE) U Benzodiazepine Level (NEGATIVE) Urine Cocaine (NEGATIVE) Urine Marijuana (THC) (NEGATIVE) Ethyl Alcohol 174 H (0-10) mg/dL Influenza Type A Ag NEGATIVE (NEGATIVE) Influenza Type B Ag NEGATIVE (NEGATIVE) RSV (PCR) NEGATIVE (NEGATIVE) SARS-CoV-2 (PCR) NEGATIVE (NEGATIVE) 04/21/23 04/21/23 04/21/23 Range/Units 01:15 01:15 03:15 WBC (4.0-10.5) x10^3/uL RBC (4.1-5.4) x10^6/uL Hgb (12.0-16.0) g/dL Hct (35-47) % MCV (78-100) fL MCH (26-32) pg MCHC (32-36) g/dL RDW (11.5-14.0) % Plt Count (150-450) x10^3/uL MPV (7.5-11.0) fL Gran % (36.0-66.0) % Immature Gran % (Auto) (0.00-0.4) % Nucleat RBC Rel Count (0.00-0.1) % Eos # (Auto) (0-0.5) x10^3/uL Immature Gran # (Auto) (0.00-0.03) x10^3u/L Absolute Lymphs (auto) (1.0-4.6) x10^3/uL Absolute Monos (auto) (0.0-1.3) x10^3/uL Absolute Nucleated RBC (0.00-0.01) x10^3u/L Lymphocytes % (24.0-44.0) % Monocytes % (0.0-12.0) % Eosinophils % (0.00-5.0) % Basophils % (0.0-0.4) % Absolute Granulocytes (1.4-6.9) x10^3/uL Basophils # (0-0.4) x10^3/uL Sodium (137-145) mmol/L Potassium (3.5-5.1) mmol/L Chloride (98-107) mmol/L Carbon Dioxide (22-30) mmol/L Anion Gap (5-15) MEQ/L BUN (7-17) mg/dL Creatinine (0.52-1.04) mg/dL Estimated GFR ML/MIN Glucose (74-106) mg/dL Lactic Acid (0.4-2.0) Calcium (8.4-10.2) mg/dL Magnesium 2.0 (1.6-2.3) mg/dL Total Bilirubin (0.2-1.3) mg/dL AST (14-36) U/L ALT (0-35) U/L Alkaline Phosphatase (38-126) U/L Ammonia < 9 L (9-30) umol/L Troponin I < 0.012 (0.000-0.034) ng/mL Serum Total Protein (6.3-8.2) g/dL Albumin (3.5-5.0) g/dL Serum HCG, Qual (NEGATIVE) Urine Color (Yellow) Urine Appearance (Clear) Urine pH (4.6-8.0) Ur Specific [place] (1.005-1.030) Urine Protein (Negative) Urine Glucose (UA) (Negative) mg/dL Urine Ketones (Negative) Urine Blood (Negative) Urine Nitrite (Negative) Urine Bilirubin (Negative) Urine Urobilinogen (0.2) mg/dL Ur Leukocyte Esterase (Negative) U Hyaline Cast (Auto) (0-2) /LPF Urine Microscopic RBC (0-5) /HPF Urine Microscopic WBC (0-5) /HPF Ur Epithelial Cells (None Seen) /HPF Urine Bacteria (None Seen) /HPF Urine Culture Reflexed (NO) Salicylates (2-20) mg/dL Urine Opiates Level (NEGATIVE) Ur Methadone (NEGATIVE) Acetaminophen (10-30) ug/ml Urine Barbiturates (NEGATIVE) Ur Phencyclidine (PCP) (NEGATIVE) Urine Amphetamine (NEGATIVE) U Benzodiazepine Level (NEGATIVE) Urine Cocaine (NEGATIVE) Urine Marijuana (THC) (NEGATIVE) Ethyl Alcohol (0-10) mg/dL Influenza Type A Ag (NEGATIVE) Influenza Type B Ag (NEGATIVE) RSV (PCR) (NEGATIVE) SARS-CoV-2 (PCR) (NEGATIVE) - Radiology Impressions Radiology Exams & Impressions: Radiology Procedures Category Date Time Status CERVICAL SPINE WO CONTRAST [CT] Stat Exams 04/20/23 22:[address] ANGIOGRAPHY NECK [CT] Stat Exams 04/21/23 01:54 Completed CTA HEAD W AND/OR WO CONTRAST [CT] Stat Exams 04/21/23 01:51 Completed ECHO W/2D AND DOPPLER [US] Stat Exams 04/21/23 09:44 Taken HEAD WITHOUT CONTRAST [CT] Stat Exams 04/20/23 22:31 Completed MRI BRAIN W/O CONTRAST [MRI] Stat Exams 04/21/23 09:44 Ordered Assessment/Plan (1) Seizure-like activity Current Visit: Yes Status: Acute Assessment & Plan: -Neurology consulted, CTA head/neck unremarkable, CT head unremarkable, MRI pending -continue keppra/ativan -transfer to [facility] -TSH, coritisol, b12/fol, cpk Code(s): R56.9 - UNSPECIFIED CONVULSIONS (2) Alcohol intoxication Current Visit: Yes Status: Acute Assessment & Plan: -alcohol level elevated upon presentation at 251, patient states she drinks 6-8 beers daily, did not drink yesterday -[facility] protocol (3) Nausea & vomiting Current Visit: Yes Status: Acute Assessment & Plan: -anti-emetics, no further episodes since admission Code(s): R11.2 - NAUSEA WITH VOMITING, UNSPECIFIED (4) Weight loss Current Visit: Yes Status: Acute Assessment & Plan: -TSH,cortisol, family h/o of hyperthyroidism -Consider [facility]can - transfer Hospital Summary - Vitals & Intake/Output Vital Signs: Vital Signs Temperature 97.4 F 04/21/23 12:00 Pulse Rate 100 H 04/21/23 12:00 Respiratory Rate 16 04/21/23 12:00 Blood Pressure 142/94 04/21/23 12:00 O2 Sat by Pulse Oximetry 98 04/21/23 12:00 Intake & Output: Intake & Output 04/19/23 04/20/23 04/21/23 04/22/23 11:59 11:59 11:59 11:59 Output Total 5600 Balance -5600 Weight 49.2 kg - Lab Result Diagrams: 04/20/23 23:00 04/21/23 01:15 Lab Results-Last 24 Hrs: Lab Results-Last 24 Hours 04/20/23 04/20/23 04/20/23 Range/Units 22:59 22:59 23:00 WBC 4.7 (4.0-10.5) x10^3/uL RBC 4.58 (4.1-5.4) x10^6/uL Hgb 14.6 (12.0-16.0) g/dL Hct 42.4 (35-47) % MCV 92.6 (78-100) fL MCH 31.9 (26-32) pg MCHC 34.4 (32-36) g/dL RDW 10.8 L (11.5-14.0) % Plt Count 277 (150-450) x10^3/uL MPV 9.2 (7.5-11.0) fL Gran % 53.0 (36.0-66.0) % Immature Gran % (Auto) 0.2 (0.00-0.4) % Nucleat RBC Rel Count 0.0 (0.00-0.1) % Eos # (Auto) 0.48 (0-0.5) x10^3/uL Immature Gran # (Auto) 0.01 (0.00-0.03) x10^3u/L Absolute Lymphs (auto) 1.25 (1.0-4.6) x10^3/uL Absolute Monos (auto) 0.44 (0.0-1.3) x10^3/uL Absolute Nucleated RBC 0.00 (0.00-0.01) x10^3u/L Lymphocytes % 26.5 (24.0-44.0) % Monocytes % 9.3 (0.0-12.0) % Eosinophils % 10.2 H (0.00-5.0) % Basophils % 0.8 (0.0-0.4) % Absolute Granulocytes 2.50 (1.4-6.9) x10^3/uL Basophils # 0.04 (0-0.4) x10^3/uL Sodium (137-145) mmol/L Potassium (3.5-5.1) mmol/L Chloride (98-107) mmol/L Carbon Dioxide (22-30) mmol/L Anion Gap (5-15) MEQ/L BUN (7-17) mg/dL Creatinine (0.52-1.04) mg/dL Estimated GFR ML/MIN Glucose (74-106) mg/dL Lactic Acid (0.4-2.0) Calcium (8.4-10.2) mg/dL Magnesium (1.6-2.3) mg/dL Total Bilirubin (0.2-1.3) mg/dL AST (14-36) U/L ALT (0-35) U/L Alkaline Phosphatase (38-126) U/L Ammonia (9-30) umol/L Troponin I (0.000-0.034) ng/mL Serum Total Protein (6.3-8.2) g/dL Albumin (3.5-5.0) g/dL Serum HCG, Qual (NEGATIVE) Urine Color Yellow (Yellow) Urine Appearance Clear (Clear) Urine pH 7.0 (4.6-8.0) Ur Specific [place] <=1.005 (1.005-1.030) Urine Protein Negative (Negative) Urine Glucose (UA) Negative (Negative) mg/dL Urine Ketones Negative (Negative) Urine Blood Negative (Negative) Urine Nitrite Negative (Negative) Urine Bilirubin Negative (Negative) Urine Urobilinogen 0.2 (0.2) mg/dL Ur Leukocyte Esterase Negative (Negative) U Hyaline Cast (Auto) NONE SEEN (0-2) /LPF Urine Microscopic RBC 0-2 (0-5) /HPF Urine Microscopic WBC 0-2 (0-5) /HPF Ur Epithelial Cells None Seen (None Seen) /HPF Urine Bacteria None Seen (None Seen) /HPF Urine Culture Reflexed ORDERED SEPARATELY (NO) Salicylates (2-20) mg/dL Urine Opiates Level NEGATIVE (NEGATIVE) Ur Methadone NEGATIVE (NEGATIVE) Acetaminophen (10-30) ug/ml Urine Barbiturates NEGATIVE (NEGATIVE) Ur Phencyclidine (PCP) NEGATIVE (NEGATIVE) Urine Amphetamine NEGATIVE (NEGATIVE) U Benzodiazepine Level NEGATIVE (NEGATIVE) Urine Cocaine NEGATIVE (NEGATIVE) Urine Marijuana (THC) NEGATIVE (NEGATIVE) Ethyl Alcohol (0-10) mg/dL Influenza Type A Ag (NEGATIVE) Influenza Type B Ag (NEGATIVE) RSV (PCR) (NEGATIVE) SARS-CoV-2 (PCR) (NEGATIVE) 04/20/23 04/20/23 04/20/23 Range/Units 23:00 23:00 23:00 WBC (4.0-10.5) x10^3/uL RBC (4.1-5.4) x10^6/uL Hgb (12.0-16.0) g/dL Hct (35-47) % MCV (78-100) fL MCH (26-32) pg MCHC (32-36) g/dL RDW (11.5-14.0) % Plt Count (150-450) x10^3/uL MPV (7.5-11.0) fL Gran % (36.0-66.0) % Immature Gran % (Auto) (0.00-0.4) % Nucleat RBC Rel Count (0.00-0.1) % Eos # (Auto) (0-0.5) x10^3/uL Immature Gran # (Auto) (0.00-0.03) x10^3u/L Absolute Lymphs (auto) (1.0-4.6) x10^3/uL Absolute Monos (auto) (0.0-1.3) x10^3/uL Absolute Nucleated RBC (0.00-0.01) x10^3u/L Lymphocytes % (24.0-44.0) % Monocytes % (0.0-12.0) % Eosinophils % (0.00-5.0) % Basophils % (0.0-0.4) % Absolute Granulocytes (1.4-6.9) x10^3/uL Basophils # (0-0.4) x10^3/uL Sodium 137 (137-145) mmol/L Potassium 3.9 (3.5-5.1) mmol/L Chloride 103 (98-107) mmol/L Carbon Dioxide 22 (22-30) mmol/L Anion Gap 16.4 H (5-15) MEQ/L BUN 6 L (7-17) mg/dL Creatinine 0.60 (0.52-1.04) mg/dL Estimated GFR 124.5 ML/MIN Glucose 84 (74-106) mg/dL Lactic Acid 2.3 H (0.4-2.0) Calcium 9.1 (8.4-10.2) mg/dL Magnesium (1.6-2.3) mg/dL Total Bilirubin 0.30 (0.2-1.3) mg/dL AST 45 H (14-36) U/L ALT 45 H (0-35) U/L Alkaline Phosphatase 83 (38-126) U/L Ammonia (9-30) umol/L Troponin I (0.000-0.034) ng/mL Serum Total Protein 7.8 (6.3-8.2) g/dL Albumin 4.7 (3.5-5.0) g/dL Serum HCG, Qual NEGATIVE (NEGATIVE) Urine Color (Yellow) Urine Appearance (Clear) Urine pH (4.6-8.0) Ur Specific [place] (1.005-1.030) Urine Protein (Negative) Urine Glucose (UA) (Negative) mg/dL Urine Ketones (Negative) Urine Blood (Negative) Urine Nitrite (Negative) Urine Bilirubin (Negative) Urine Urobilinogen (0.2) mg/dL Ur Leukocyte Esterase (Negative) U Hyaline Cast (Auto) (0-2) /LPF Urine Microscopic RBC (0-5) /HPF Urine Microscopic WBC (0-5) /HPF Ur Epithelial Cells (None Seen) /HPF Urine Bacteria (None Seen) /HPF Urine Culture Reflexed (NO) Salicylates < 1.0 L (2-20) mg/dL Urine Opiates Level (NEGATIVE) Ur Methadone (NEGATIVE) Acetaminophen < 10 L (10-30) ug/ml Urine Barbiturates (NEGATIVE) Ur Phencyclidine (PCP) (NEGATIVE) Urine Amphetamine (NEGATIVE) U Benzodiazepine Level (NEGATIVE) Urine Cocaine (NEGATIVE) Urine Marijuana (THC) (NEGATIVE) Ethyl Alcohol 251 H (0-10) mg/dL Influenza Type A Ag (NEGATIVE) Influenza Type B Ag (NEGATIVE) RSV (PCR) (NEGATIVE) SARS-CoV-2 (PCR) (NEGATIVE) 04/20/23 04/21/23 04/21/23 Range/Units 23:15 01:10 01:15 WBC (4.0-10.5) x10^3/uL RBC (4.1-5.4) x10^6/uL Hgb (12.0-16.0) g/dL Hct (35-47) % MCV (78-100) fL MCH (26-32) pg MCHC (32-36) g/dL RDW (11.5-14.0) % Plt Count (150-450) x10^3/uL MPV (7.5-11.0) fL Gran % (36.0-66.0) % Immature Gran % (Auto) (0.00-0.4) % Nucleat RBC Rel Count (0.00-0.1) % Eos # (Auto) (0-0.5) x10^3/uL Immature Gran # (Auto) (0.00-0.03) x10^3u/L Absolute Lymphs (auto) (1.0-4.6) x10^3/uL Absolute Monos (auto) (0.0-1.3) x10^3/uL Absolute Nucleated RBC (0.00-0.01) x10^3u/L Lymphocytes % (24.0-44.0) % Monocytes % (0.0-12.0) % Eosinophils % (0.00-5.0) % Basophils % (0.0-0.4) % Absolute Granulocytes (1.4-6.9) x10^3/uL Basophils # (0-0.4) x10^3/uL Sodium 142 (137-145) mmol/L Potassium 3.8 (3.5-5.1) mmol/L Chloride 114 H (98-107) mmol/L Carbon Dioxide 22 (22-30) mmol/L Anion Gap 10.0 (5-15) MEQ/L BUN 6 L (7-17) mg/dL Creatinine 0.55 (0.52-1.04) mg/dL Estimated GFR 127.2 ML/MIN Glucose 92 (74-106) mg/dL Lactic Acid 1.8 (0.4-2.0) Calcium 8.0 L (8.4-10.2) mg/dL Magnesium (1.6-2.3) mg/dL Total Bilirubin (0.2-1.3) mg/dL AST (14-36) U/L ALT (0-35) U/L Alkaline Phosphatase (38-126) U/L Ammonia (9-30) umol/L Troponin I (0.000-0.034) ng/mL Serum Total Protein (6.3-8.2) g/dL Albumin (3.5-5.0) g/dL Serum HCG, Qual (NEGATIVE) Urine Color (Yellow) Urine Appearance (Clear) Urine pH (4.6-8.0) Ur Specific [place] (1.005-1.030) Urine Protein (Negative) Urine Glucose (UA) (Negative) mg/dL Urine Ketones (Negative) Urine Blood (Negative) Urine Nitrite (Negative) Urine Bilirubin (Negative) Urine Urobilinogen (0.2) mg/dL Ur Leukocyte Esterase (Negative) U Hyaline Cast (Auto) (0-2) /LPF Urine Microscopic RBC (0-5) /HPF Urine Microscopic WBC (0-5) /HPF Ur Epithelial Cells (None Seen) /HPF Urine Bacteria (None Seen) /HPF Urine Culture Reflexed (NO) Salicylates (2-20) mg/dL Urine Opiates Level (NEGATIVE) Ur Methadone (NEGATIVE) Acetaminophen (10-30) ug/ml Urine Barbiturates (NEGATIVE) Ur Phencyclidine (PCP) (NEGATIVE) Urine Amphetamine (NEGATIVE) U Benzodiazepine Level (NEGATIVE) Urine Cocaine (NEGATIVE) Urine Marijuana (THC) (NEGATIVE) Ethyl Alcohol 174 H (0-10) mg/dL Influenza Type A Ag NEGATIVE (NEGATIVE) Influenza Type B Ag NEGATIVE (NEGATIVE) RSV (PCR) NEGATIVE (NEGATIVE) SARS-CoV-2 (PCR) NEGATIVE (NEGATIVE) 04/21/23 04/21/23 04/21/23 Range/Units 01:15 01:15 03:15 WBC (4.0-10.5) x10^3/uL RBC (4.1-5.4) x10^6/uL Hgb (12.0-16.0) g/dL Hct (35-47) % MCV (78-100) fL MCH (26-32) pg MCHC (32-36) g/dL RDW (11.5-14.0) % Plt Count (150-450) x10^3/uL MPV (7.5-11.0) fL Gran % (36.0-66.0) % Immature Gran % (Auto) (0.00-0.4) % Nucleat RBC Rel Count (0.00-0.1) % Eos # (Auto) (0-0.5) x10^3/uL Immature Gran # (Auto) (0.00-0.03) x10^3u/L Absolute Lymphs (auto) (1.0-4.6) x10^3/uL Absolute Monos (auto) (0.0-1.3) x10^3/uL Absolute Nucleated RBC (0.00-0.01) x10^3u/L Lymphocytes % (24.0-44.0) % Monocytes % (0.0-12.0) % Eosinophils % (0.00-5.0) % Basophils % (0.0-0.4) % Absolute Granulocytes (1.4-6.9) x10^3/uL Basophils # (0-0.4) x10^3/uL Sodium (137-145) mmol/L Potassium (3.5-5.1) mmol/L Chloride (98-107) mmol/L Carbon Dioxide (22-30) mmol/L Anion Gap (5-15) MEQ/L BUN (7-17) mg/dL Creatinine (0.52-1.04) mg/dL Estimated GFR ML/MIN Glucose (74-106) mg/dL Lactic Acid (0.4-2.0) Calcium (8.4-10.2) mg/dL Magnesium 2.0 (1.6-2.3) mg/dL Total Bilirubin (0.2-1.3) mg/dL AST (14-36) U/L ALT (0-35) U/L Alkaline Phosphatase (38-126) U/L Ammonia < 9 L (9-30) umol/L Troponin I < 0.012 (0.000-0.034) ng/mL Serum Total Protein (6.3-8.2) g/dL Albumin (3.5-5.0) g/dL Serum HCG, Qual (NEGATIVE) Urine Color (Yellow) Urine Appearance (Clear) Urine pH (4.6-8.0) Ur Specific [place] (1.005-1.030) Urine Protein (Negative) Urine Glucose (UA) (Negative) mg/dL Urine Ketones (Negative) Urine Blood (Negative) Urine Nitrite (Negative) Urine Bilirubin (Negative) Urine Urobilinogen (0.2) mg/dL Ur Leukocyte Esterase (Negative) U Hyaline Cast (Auto) (0-2) /LPF Urine Microscopic RBC (0-5) /HPF Urine Microscopic WBC (0-5) /HPF Ur Epithelial Cells (None Seen) /HPF Urine Bacteria (None Seen) /HPF Urine Culture Reflexed (NO) Salicylates (2-20) mg/dL Urine Opiates Level (NEGATIVE) Ur Methadone (NEGATIVE) Acetaminophen (10-30) ug/ml Urine Barbiturates (NEGATIVE) Ur Phencyclidine (PCP) (NEGATIVE) Urine Amphetamine (NEGATIVE) U Benzodiazepine Level (NEGATIVE) Urine Cocaine (NEGATIVE) Urine Marijuana (THC) (NEGATIVE) Ethyl Alcohol (0-10) mg/dL Influenza Type A Ag (NEGATIVE) Influenza Type B Ag (NEGATIVE) RSV (PCR) (NEGATIVE) SARS-CoV-2 (PCR) (NEGATIVE) - Radiology Exams Ordered Rad Exams-Entire Visit: Radiology Procedures Category Date Time Status CERVICAL SPINE WO CONTRAST [CT] Stat Exams 04/20/23 22:[address] ANGIOGRAPHY NECK [CT] Stat Exams 04/21/23 01:54 Completed CTA HEAD W AND/OR WO CONTRAST [CT] Stat Exams 04/21/23 01:51 Completed ECHO W/2D AND DOPPLER [US] Stat Exams 04/21/23 09:44 Taken HEAD WITHOUT CONTRAST [CT] Stat Exams 04/20/23 22:31 Completed MRI BRAIN W/O CONTRAST [MRI] Stat Exams 04/21/23 09:44 Ordered - Discharge Disposition: Home, Self-Care Condition: Stable Prescriptions: No Action Vits W-Ca,Fe,FA(<1Mg) [] 1 each PO DAILY Dextroamphetamine/Amphetamine [Adderall Xr 10 mg Capsule] 10 mg PO DAILY Follow up with: WENDY CLIFFORD NP [Primary Care Provider] -
--- NOTE | 2023-04-21 13:29 | PCM.DS ---
Discharge Summary Date of Admission: 04/21/23 05:27 Date of Discharge: 04/21/23 Admitting Physician: LUCA GARCIA MD Primary Care Provider: WENDY CLIFFORD Allergies Allergies No Known Drug Allergies Allergy (Unverified 04/21/23 12:33) Hospital Summary - Vitals & Intake/Output Vital Signs: Vital Signs Temperature 97.4 F 04/21/23 12:00 Pulse Rate 100 H 04/21/23 12:00 Respiratory Rate 16 04/21/23 12:00 Blood Pressure 142/94 04/21/23 12:00 O2 Sat by Pulse Oximetry 98 04/21/23 12:00 Intake & Output: Intake & Output 04/19/23 04/20/23 04/21/23 04/22/23 11:59 11:59 11:59 11:59 Output Total 5600 Balance -5600 Weight 49.2 kg - Lab Result Diagrams: 04/20/23 23:00 04/21/23 01:15 Lab Results-Last 24 Hrs: Lab Results-Last 24 Hours 04/20/23 04/20/23 04/20/23 Range/Units 22:59 22:59 23:00 WBC 4.7 (4.0-10.5) x10^3/uL RBC 4.58 (4.1-5.4) x10^6/uL Hgb 14.6 (12.0-16.0) g/dL Hct 42.4 (35-47) % MCV 92.6 (78-100) fL MCH 31.9 (26-32) pg MCHC 34.4 (32-36) g/dL RDW 10.8 L (11.5-14.0) % Plt Count 277 (150-450) x10^3/uL MPV 9.2 (7.5-11.0) fL Gran % 53.0 (36.0-66.0) % Immature Gran % (Auto) 0.2 (0.00-0.4) % Nucleat RBC Rel Count 0.0 (0.00-0.1) % Eos # (Auto) 0.48 (0-0.5) x10^3/uL Immature Gran # (Auto) 0.01 (0.00-0.03) x10^3u/L Absolute Lymphs (auto) 1.25 (1.0-4.6) x10^3/uL Absolute Monos (auto) 0.44 (0.0-1.3) x10^3/uL Absolute Nucleated RBC 0.00 (0.00-0.01) x10^3u/L Lymphocytes % 26.5 (24.0-44.0) % Monocytes % 9.3 (0.0-12.0) % Eosinophils % 10.2 H (0.00-5.0) % Basophils % 0.8 (0.0-0.4) % Absolute Granulocytes 2.50 (1.4-6.9) x10^3/uL Basophils # 0.04 (0-0.4) x10^3/uL Sodium (137-145) mmol/L Potassium (3.5-5.1) mmol/L Chloride (98-107) mmol/L Carbon Dioxide (22-30) mmol/L Anion Gap (5-15) MEQ/L BUN (7-17) mg/dL Creatinine (0.52-1.04) mg/dL Estimated GFR ML/MIN Glucose (74-106) mg/dL Lactic Acid (0.4-2.0) Calcium (8.4-10.2) mg/dL Magnesium (1.6-2.3) mg/dL Total Bilirubin (0.2-1.3) mg/dL AST (14-36) U/L ALT (0-35) U/L Alkaline Phosphatase (38-126) U/L Ammonia (9-30) umol/L Troponin I (0.000-0.034) ng/mL Serum Total Protein (6.3-8.2) g/dL Albumin (3.5-5.0) g/dL Serum HCG, Qual (NEGATIVE) Urine Color Yellow (Yellow) Urine Appearance Clear (Clear) Urine pH 7.0 (4.6-8.0) Ur Specific [place] <=1.005 (1.005-1.030) Urine Protein Negative (Negative) Urine Glucose (UA) Negative (Negative) mg/dL Urine Ketones Negative (Negative) Urine Blood Negative (Negative) Urine Nitrite Negative (Negative) Urine Bilirubin Negative (Negative) Urine Urobilinogen 0.2 (0.2) mg/dL Ur Leukocyte Esterase Negative (Negative) U Hyaline Cast (Auto) NONE SEEN (0-2) /LPF Urine Microscopic RBC 0-2 (0-5) /HPF Urine Microscopic WBC 0-2 (0-5) /HPF Ur Epithelial Cells None Seen (None Seen) /HPF Urine Bacteria None Seen (None Seen) /HPF Urine Culture Reflexed ORDERED SEPARATELY (NO) Salicylates (2-20) mg/dL Urine Opiates Level NEGATIVE (NEGATIVE) Ur Methadone NEGATIVE (NEGATIVE) Acetaminophen (10-30) ug/ml Urine Barbiturates NEGATIVE (NEGATIVE) Ur Phencyclidine (PCP) NEGATIVE (NEGATIVE) Urine Amphetamine NEGATIVE (NEGATIVE) U Benzodiazepine Level NEGATIVE (NEGATIVE) Urine Cocaine NEGATIVE (NEGATIVE) Urine Marijuana (THC) NEGATIVE (NEGATIVE) Ethyl Alcohol (0-10) mg/dL Influenza Type A Ag (NEGATIVE) Influenza Type B Ag (NEGATIVE) RSV (PCR) (NEGATIVE) SARS-CoV-2 (PCR) (NEGATIVE) 04/20/23 04/20/23 04/20/23 Range/Units 23:00 23:00 23:00 WBC (4.0-10.5) x10^3/uL RBC (4.1-5.4) x10^6/uL Hgb (12.0-16.0) g/dL Hct (35-47) % MCV (78-100) fL MCH (26-32) pg MCHC (32-36) g/dL RDW (11.5-14.0) % Plt Count (150-450) x10^3/uL MPV (7.5-11.0) fL Gran % (36.0-66.0) % Immature Gran % (Auto) (0.00-0.4) % Nucleat RBC Rel Count (0.00-0.1) % Eos # (Auto) (0-0.5) x10^3/uL Immature Gran # (Auto) (0.00-0.03) x10^3u/L Absolute Lymphs (auto) (1.0-4.6) x10^3/uL Absolute Monos (auto) (0.0-1.3) x10^3/uL Absolute Nucleated RBC (0.00-0.01) x10^3u/L Lymphocytes % (24.0-44.0) % Monocytes % (0.0-12.0) % Eosinophils % (0.00-5.0) % Basophils % (0.0-0.4) % Absolute Granulocytes (1.4-6.9) x10^3/uL Basophils # (0-0.4) x10^3/uL Sodium 137 (137-145) mmol/L Potassium 3.9 (3.5-5.1) mmol/L Chloride 103 (98-107) mmol/L Carbon Dioxide 22 (22-30) mmol/L Anion Gap 16.4 H (5-15) MEQ/L BUN 6 L (7-17) mg/dL Creatinine 0.60 (0.52-1.04) mg/dL Estimated GFR 124.5 ML/MIN Glucose 84 (74-106) mg/dL Lactic Acid 2.3 H (0.4-2.0) Calcium 9.1 (8.4-10.2) mg/dL Magnesium (1.6-2.3) mg/dL Total Bilirubin 0.30 (0.2-1.3) mg/dL AST 45 H (14-36) U/L ALT 45 H (0-35) U/L Alkaline Phosphatase 83 (38-126) U/L Ammonia (9-30) umol/L Troponin I (0.000-0.034) ng/mL Serum Total Protein 7.8 (6.3-8.2) g/dL Albumin 4.7 (3.5-5.0) g/dL Serum HCG, Qual NEGATIVE (NEGATIVE) Urine Color (Yellow) Urine Appearance (Clear) Urine pH (4.6-8.0) Ur Specific [place] (1.005-1.030) Urine Protein (Negative) Urine Glucose (UA) (Negative) mg/dL Urine Ketones (Negative) Urine Blood (Negative) Urine Nitrite (Negative) Urine Bilirubin (Negative) Urine Urobilinogen (0.2) mg/dL Ur Leukocyte Esterase (Negative) U Hyaline Cast (Auto) (0-2) /LPF Urine Microscopic RBC (0-5) /HPF Urine Microscopic WBC (0-5) /HPF Ur Epithelial Cells (None Seen) /HPF Urine Bacteria (None Seen) /HPF Urine Culture Reflexed (NO) Salicylates < 1.0 L (2-20) mg/dL Urine Opiates Level (NEGATIVE) Ur Methadone (NEGATIVE) Acetaminophen < 10 L (10-30) ug/ml Urine Barbiturates (NEGATIVE) Ur Phencyclidine (PCP) (NEGATIVE) Urine Amphetamine (NEGATIVE) U Benzodiazepine Level (NEGATIVE) Urine Cocaine (NEGATIVE) Urine Marijuana (THC) (NEGATIVE) Ethyl Alcohol 251 H (0-10) mg/dL Influenza Type A Ag (NEGATIVE) Influenza Type B Ag (NEGATIVE) RSV (PCR) (NEGATIVE) SARS-CoV-2 (PCR) (NEGATIVE) 04/20/23 04/21/23 04/21/23 Range/Units 23:15 01:10 01:15 WBC (4.0-10.5) x10^3/uL RBC (4.1-5.4) x10^6/uL Hgb (12.0-16.0) g/dL Hct (35-47) % MCV (78-100) fL MCH (26-32) pg MCHC (32-36) g/dL RDW (11.5-14.0) % Plt Count (150-450) x10^3/uL MPV (7.5-11.0) fL Gran % (36.0-66.0) % Immature Gran % (Auto) (0.00-0.4) % Nucleat RBC Rel Count (0.00-0.1) % Eos # (Auto) (0-0.5) x10^3/uL Immature Gran # (Auto) (0.00-0.03) x10^3u/L Absolute Lymphs (auto) (1.0-4.6) x10^3/uL Absolute Monos (auto) (0.0-1.3) x10^3/uL Absolute Nucleated RBC (0.00-0.01) x10^3u/L Lymphocytes % (24.0-44.0) % Monocytes % (0.0-12.0) % Eosinophils % (0.00-5.0) % Basophils % (0.0-0.4) % Absolute Granulocytes (1.4-6.9) x10^3/uL Basophils # (0-0.4) x10^3/uL Sodium 142 (137-145) mmol/L Potassium 3.8 (3.5-5.1) mmol/L Chloride 114 H (98-107) mmol/L Carbon Dioxide 22 (22-30) mmol/L Anion Gap 10.0 (5-15) MEQ/L BUN 6 L (7-17) mg/dL Creatinine 0.55 (0.52-1.04) mg/dL Estimated GFR 127.2 ML/MIN Glucose 92 (74-106) mg/dL Lactic Acid 1.8 (0.4-2.0) Calcium 8.0 L (8.4-10.2) mg/dL Magnesium (1.6-2.3) mg/dL Total Bilirubin (0.2-1.3) mg/dL AST (14-36) U/L ALT (0-35) U/L Alkaline Phosphatase (38-126) U/L Ammonia (9-30) umol/L Troponin I (0.000-0.034) ng/mL Serum Total Protein (6.3-8.2) g/dL Albumin (3.5-5.0) g/dL Serum HCG, Qual (NEGATIVE) Urine Color (Yellow) Urine Appearance (Clear) Urine pH (4.6-8.0) Ur Specific [place] (1.005-1.030) Urine Protein (Negative) Urine Glucose (UA) (Negative) mg/dL Urine Ketones (Negative) Urine Blood (Negative) Urine Nitrite (Negative) Urine Bilirubin (Negative) Urine Urobilinogen (0.2) mg/dL Ur Leukocyte Esterase (Negative) U Hyaline Cast (Auto) (0-2) /LPF Urine Microscopic RBC (0-5) /HPF Urine Microscopic WBC (0-5) /HPF Ur Epithelial Cells (None Seen) /HPF Urine Bacteria (None Seen) /HPF Urine Culture Reflexed (NO) Salicylates (2-20) mg/dL Urine Opiates Level (NEGATIVE) Ur Methadone (NEGATIVE) Acetaminophen (10-30) ug/ml Urine Barbiturates (NEGATIVE) Ur Phencyclidine (PCP) (NEGATIVE) Urine Amphetamine (NEGATIVE) U Benzodiazepine Level (NEGATIVE) Urine Cocaine (NEGATIVE) Urine Marijuana (THC) (NEGATIVE) Ethyl Alcohol 174 H (0-10) mg/dL Influenza Type A Ag NEGATIVE (NEGATIVE) Influenza Type B Ag NEGATIVE (NEGATIVE) RSV (PCR) NEGATIVE (NEGATIVE) SARS-CoV-2 (PCR) NEGATIVE (NEGATIVE) 04/21/23 04/21/23 04/21/23 Range/Units 01:15 01:15 03:15 WBC (4.0-10.5) x10^3/uL RBC (4.1-5.4) x10^6/uL Hgb (12.0-16.0) g/dL Hct (35-47) % MCV (78-100) fL MCH (26-32) pg MCHC (32-36) g/dL RDW (11.5-14.0) % Plt Count (150-450) x10^3/uL MPV (7.5-11.0) fL Gran % (36.0-66.0) % Immature Gran % (Auto) (0.00-0.4) % Nucleat RBC Rel Count (0.00-0.1) % Eos # (Auto) (0-0.5) x10^3/uL Immature Gran # (Auto) (0.00-0.03) x10^3u/L Absolute Lymphs (auto) (1.0-4.6) x10^3/uL Absolute Monos (auto) (0.0-1.3) x10^3/uL Absolute Nucleated RBC (0.00-0.01) x10^3u/L Lymphocytes % (24.0-44.0) % Monocytes % (0.0-12.0) % Eosinophils % (0.00-5.0) % Basophils % (0.0-0.4) % Absolute Granulocytes (1.4-6.9) x10^3/uL Basophils # (0-0.4) x10^3/uL Sodium (137-145) mmol/L Potassium (3.5-5.1) mmol/L Chloride (98-107) mmol/L Carbon Dioxide (22-30) mmol/L Anion Gap (5-15) MEQ/L BUN (7-17) mg/dL Creatinine (0.52-1.04) mg/dL Estimated GFR ML/MIN Glucose (74-106) mg/dL Lactic Acid (0.4-2.0) Calcium (8.4-10.2) mg/dL Magnesium 2.0 (1.6-2.3) mg/dL Total Bilirubin (0.2-1.3) mg/dL AST (14-36) U/L ALT (0-35) U/L Alkaline Phosphatase (38-126) U/L Ammonia < 9 L (9-30) umol/L Troponin I < 0.012 (0.000-0.034) ng/mL Serum Total Protein (6.3-8.2) g/dL Albumin (3.5-5.0) g/dL Serum HCG, Qual (NEGATIVE) Urine Color (Yellow) Urine Appearance (Clear) Urine pH (4.6-8.0) Ur Specific [place] (1.005-1.030) Urine Protein (Negative) Urine Glucose (UA) (Negative) mg/dL Urine Ketones (Negative) Urine Blood (Negative) Urine Nitrite (Negative) Urine Bilirubin (Negative) Urine Urobilinogen (0.2) mg/dL Ur Leukocyte Esterase (Negative) U Hyaline Cast (Auto) (0-2) /LPF Urine Microscopic RBC (0-5) /HPF Urine Microscopic WBC (0-5) /HPF Ur Epithelial Cells (None Seen) /HPF Urine Bacteria (None Seen) /HPF Urine Culture Reflexed (NO) Salicylates (2-20) mg/dL Urine Opiates Level (NEGATIVE) Ur Methadone (NEGATIVE) Acetaminophen (10-30) ug/ml Urine Barbiturates (NEGATIVE) Ur Phencyclidine (PCP) (NEGATIVE) Urine Amphetamine (NEGATIVE) U Benzodiazepine Level (NEGATIVE) Urine Cocaine (NEGATIVE) Urine Marijuana (THC) (NEGATIVE) Ethyl Alcohol (0-10) mg/dL Influenza Type A Ag (NEGATIVE) Influenza Type B Ag (NEGATIVE) RSV (PCR) (NEGATIVE) SARS-CoV-2 (PCR) (NEGATIVE) - Radiology Exams Ordered Rad Exams-Entire Visit: Radiology Procedures Category Date Time Status CERVICAL SPINE WO CONTRAST [CT] Stat Exams 04/20/23 22:[address] ANGIOGRAPHY NECK [CT] Stat Exams 04/21/23 01:54 Completed CTA HEAD W AND/OR WO CONTRAST [CT] Stat Exams 04/21/23 01:51 Completed ECHO W/2D AND DOPPLER [US] Stat Exams 04/21/23 09:44 Taken HEAD WITHOUT CONTRAST [CT] Stat Exams 04/20/23 22:31 Completed MRI BRAIN W/O CONTRAST [MRI] Stat Exams 04/21/23 09:44 Ordered Discharge Exam General Appearance: no apparent distress Neurologic Exam: alert, oriented x 3, cooperative, other (slow speech) Eye Exam: PERRL Ears, Nose, Throat Exam: normal ENT inspection Neck Exam: normal inspection Respiratory Exam: normal breath sounds, lungs clear Cardiovascular Exam: regular rate/rhythm, normal heart sounds Gastrointestinal/Abdomen Exam: soft, normal bowel sounds Pelvic Exam: deferred Rectal Exam: deferred Back Exam: normal inspection Extremity Exam: other (witnessed decorticate positioning) Skin Exam: normal color Final Diagnosis/Problem List - Final Discharge Diagnosis/Problem (1) Seizure-like activity Current Visit: Yes Status: Acute Code(s): R56.9 - UNSPECIFIED CONVULSIONS (2) Alcohol intoxication Current Visit: Yes Status: Acute (3) Nausea & vomiting Current Visit: Yes Status: Acute Code(s): R11.2 - NAUSEA WITH VOMITING, UNSPECIFIED (4) Weight loss Current Visit: Yes Status: Acute - Discharge Disposition: DC TO OTHER HOSP Condition: Fair Prescriptions: New Lorazepam 1 mg [Ativan 1 MG] 1 mg PO PRN PRN tablet PRN Reason: Ciwa Score Folic Acid 1 mg [Folate 1 mg] 1 mg PO DAILY tablet Levetiracetam 250 MG [Keppra 250 MG] 750 mg PO BID tablet Nicotine 21 mg [Nicoderm CQ 21 MG] 21 mg TOP Q24H PRN patch PRN Reason: Agitation Multivitamins,Therapeutic Tab* [Theragran Multivitamin] 1 tab PO QAM tablet Acetaminophen 325 mg [Tylenol 325 mg] 650 mg PO Q4H PRN PRN tablet PRN Reason: Pain, Fever, Headache Thiamine HCl 100 mg [Vitamin B-1 100 mg] 100 mg PO DAILY tablet Ondansetron HCl 4 mg/2 ml [Zofran 4 MG/2 ML VIAL] 4 mg IV Q6H PRN PRN PRN Reason: Nausea/Vomiting Continue Vits W-Ca,Fe,FA(<1Mg) [] 1 each PO DAILY Dextroamphetamine/Amphetamine [Adderall Xr 10 mg Capsule] 10 mg PO DAILY Follow up with: WENDY CLIFFORD NP [Primary Care Provider] -
--- NOTE | 2023-04-21 14:18 | XRAY ---
Indication: Seizure. Normal CT head, normal CTA neck, and normal CTA head exams. Sagittal, coronal, and axial MRI brain performed without contrast using T1, T2, FLAIR, diffusion, and ADC sequences. Comparison: None Ventriculosulcal pattern appears symmetric. No acute intracranial hemorrhage, abnormal extra-axial fluid collection, or mass effect. Diffusion images negative for restricted signal. Fourth ventricle is midline without hydrocephalus. Negative for mesial temporal sclerosis. 7/8 cranial nerve complex bilaterally symmetric. Normal flow void signal within the major intracerebral circulation. Normal appearing craniocervical junction and sella turcica. Mild mucosal thickening both maxillary and both ethmoid sinuses with tiny fluid leveling right maxillary sinus. Impression: Mild paranasal sinus disease. Remaining MRI brain without contrast exam is negative.
[2023-04-21 14:27] LABS: Folate (Folic Acid) 7.87 ng/mL (2.76 - >20); PROCALCITONIN 0.067 ng/mL (0.030-0.080); TSH, 3RD Generation 4.01 mIU/L (0.47-4.68)
== END 2023-04-21 13:55 ==
LOC: ED 22:29 → MED SURG 04-21 05:27 → MERGE 04-21 05:27
PROVIDERS: ADMIT Internal Medicine; ATTEND Internal Medicine
DX: R56.9 Unspecified convulsions (principal); F10.129 Alcohol abuse with intoxication, unspecified; R11.2 Nausea with vomiting, unspecified; R63.4 Abnormal weight loss; F90.9 Attention-deficit hyperactivity disorder, unspecified type; Z20.828 Contact with and (suspected) exposure to other viral communicable diseases
CPT/HCPCS: 0241U; 36415; 51702; 70450; 70496; 70498; 70551; 72125; 80048; 80053; 80143; 80179; 80307; 81001; 82077; 82140; 82550; 82607; 82746; 82947; 83605; 83735; 84145; 84443; 84484; 84703; 85025; 87086; 93005; 93306; 96360; 96365; 96374; 96375; 99291; 93268; 96361; 99284; J1953; J2060; J2405; Q3014; A9270-GY; G0378

== ENCOUNTER 2023-05-04 09:24 | Emergency (ER) | payer OTHER ==
[2023-05-04 09:45] VITALS: TEMP 97.7
--- NOTE | 2023-05-04 10:05 | ERPHSYRPT ---
- History of Present Illness Time Seen by Provider: 05/04/23 09:40 Source: patient, family Exam Limitations: no limitations Patient Subjective Stated Complaint: C/O pounding headache and neck pain following a "spinal fluid removal" procedure at [facility] 6 days ago Triage Nursing Assessment: Patient ambulated back to ER. Patient insists on lying flat in bed, states head only hurts when sitting upright. She is alert and oriented. Skin tone normal. NAJERA WNL. No SOB. Physician History: Patient is a 28-year-old white female who was seen in this ER on the end of March. At that time she experienced her first seizure she has then seen neurologist on several occasions at [facility] and at the [facility]. She did have at [facility] a lumbar puncture done and has had since that time excruciating headache when she is upright. As long as she is flat she has no headache obviously this is highly suggestive of a post lumbar puncture headache. Timing/Duration: week(s) (2) Quality: throbbing Head Pain Location: global Severity of Pain-Max: severe Severity of Pain-Current: none Recent Head Trauma: occasional headaches Allergies/Adverse Reactions: No Known Drug Allergies Allergy (Verified 05/04/23 09:33) Home Medications: Vits W-Ca,Fe,FA(<1Mg) [] 1 each PO DAILY 05/16/16 [History] Dextroamphetamine/Amphetamine [Adderall Xr 10 mg Capsule] 10 mg PO DAILY 04/20/23 [History] Hx Tetanus, Diphtheria Vaccination/Date Given: Yes Hx Influenza Vaccination/Date Given: No Hx Pneumococcal Vaccination/Date Given: No Immunizations Up to Date: Yes Travel Risk - International Travel Have you traveled outside of the country in past 3 weeks: No - Coronavirus Screening Are you exhibiting any of the following symptoms?: Yes Symptoms: Headaches/Body Aches/Fatigue Close contact with a COVID-19 positive Pt in past 14-21 Days: No - Vaccine Status Have you recieved a Covid-19 vaccination: No - Review of Systems Constitutional: Weakness Eyes: Photophobia - Past Medical History Pertinent Past Medical History: Yes Neurological History: Seizures ENT History: No Pertinent History Cardiac History: No Pertinent History Respiratory History: No Pertinent History Endocrine Medical History: No Pertinent History Musculoskeletal History: No Pertinent History GI Medical History: No Pertinent History History: No Pertinent History Psycho-Social History: Attention Deficit Disorder Female Reproductive Disorders: No Pertinent History Other Medical History: seasonal allergies - Past Surgical History Past Surgical History: Yes Neuro Surgical History: No Pertinent History Cardiac: No Pertinent History Respiratory: No Pertinent History Gastrointestinal: No Pertinent History Genitourinary: No Pertinent History Musculoskeletal: Orthopedic Surgery Female Surgical History: No Pertinent History Other Surgical History: throat nodules, fx arm - Social History Smoking Status: Former smoker Exposure to second hand smoke: No Drug Use: none Patient Lives Alone: No - Female History Hx Last Menstrual Period: 3 weeks ago Hx Now: No - Nursing Vital Signs Nursing Vital Signs: Initial Vital Signs Pulse Rate 71 05/04/23 09:30 Respiratory Rate 18 05/04/23 09:30 Blood Pressure 115/71 05/04/23 09:30 O2 Sat by Pulse Oximetry 100 05/04/23 09:30 Pain Scale Pain Intensity 0 - Physical Exam General Appearance: no apparent distress Eye Exam: PERRL/EOMI Ears, Nose, Throat Exam: normal ENT inspection, moist mucous membranes Neck Exam: normal inspection, supple, full range of motion, No meningismus Respiratory Exam: normal breath sounds, lungs clear Cardiovascular Exam: regular rate/rhythm, normal heart sounds Gastrointestinal/Abdominal Exam: soft, No tenderness, No distention Back Exam: normal inspection, normal range of motion Mental Status Exam: alert, oriented x 3, cooperative anesthesia attending Exam: normal speech, PERRL, No facial droop Coordination/Gait Exam: normal cerebellar function Motor/Sensory Exam: no motor deficit, no sensory deficit Skin Exam: normal color, warm, dry, No rash SpO2: 100 Ordered Tests: Active Orders 24 hr Category Date Time Status CBC W DIFF Stat Lab 05/04/23 10:18 Completed CMP Stat Lab 05/04/23 10:18 Completed PROTIME WITH INR Stat Lab 05/04/23 10:18 Completed PTT Stat Lab 05/04/23 10:18 Completed UA W/RFX UR CULTURE Stat Lab 05/04/23 10:18 Completed Medication Summary Discontinued Medications Generic Name Dose Route Start Last Admin Trade Name Freq PRN Reason Stop Dose Admin Sodium Chloride 1,000 mls @ 999 mls/hr 05/04/23 09:42 05/04/23 12:42 Sodium Chloride 0.9% 1000 Ml IV 05/04/23 10:42 Infused .Q1H1M STA Infusion Sodium Chloride Confirm 05/04/23 11:38 Sodium Chloride 0.9% 1000 Ml Administered 05/04/23 11:39 Dose 1,000 mls @ ud .ROUTE .[facility] Lab/Rad Data: Laboratory Result Diagrams 05/04/23 10:18 05/04/23 10:18 Laboratory Results 05/04/23 05/04/23 05/04/23 Range/Units 10:18 10:18 10:18 WBC (4.0-10.5) x10^3/uL RBC (4.1-5.4) x10^6/uL Hgb (12.0-16.0) g/dL Hct (35-47) % MCV (78-100) fL MCH (26-32) pg MCHC (32-36) g/dL RDW (11.5-14.0) % Plt Count (150-450) x10^3/uL MPV (7.5-11.0) fL Gran % (36.0-66.0) % Immature Gran % (Auto) (0.00-0.4) % Nucleat RBC Rel Count (0.00-0.1) % Eos # (Auto) (0-0.5) x10^3/uL Immature Gran # (Auto) (0.00-0.03) x10^3u/L Absolute Lymphs (auto) (1.0-4.6) x10^3/uL Absolute Monos (auto) (0.0-1.3) x10^3/uL Absolute Nucleated RBC (0.00-0.01) x10^3u/L Lymphocytes % (24.0-44.0) % Monocytes % (0.0-12.0) % Eosinophils % (0.00-5.0) % Basophils % (0.0-0.4) % Absolute Granulocytes (1.4-6.9) x10^3/uL Basophils # (0-0.4) x10^3/uL PT 10.3 (9.4-12.5) SECONDS INR 0.94 (0.8-3.0) APTT 28.5 (25.1-36.5) SECONDS Sodium 139 (137-145) mmol/L Potassium 4.1 (3.5-5.1) mmol/L Chloride 105 (98-107) mmol/L Carbon Dioxide 27 (22-30) mmol/L Anion Gap 10.8 (5-15) MEQ/L BUN 12 (7-17) mg/dL Creatinine 0.76 (0.52-1.04) mg/dL Estimated GFR 108.7 ML/MIN Glucose 84 (74-106) mg/dL Calcium 10.0 (8.4-10.2) mg/dL Total Bilirubin 0.40 (0.2-1.3) mg/dL AST 74 H (14-36) U/L ALT 90 H (0-35) U/L Alkaline Phosphatase 59 (38-126) U/L Serum Total Protein 8.4 H (6.3-8.2) g/dL Albumin 5.0 (3.5-5.0) g/dL Urine Color Yellow (Yellow) Urine Appearance Clear (Clear) Urine pH 7.5 (4.6-8.0) Ur Specific Topock <=1.005 (1.005-1.030) Urine Protein Negative (Negative) Urine Glucose (UA) Negative (Negative) mg/dL Urine Ketones Negative (Negative) Urine Blood Negative (Negative) Urine Nitrite Negative (Negative) Urine Bilirubin Negative (Negative) Urine Urobilinogen 0.2 (0.2) mg/dL Ur Leukocyte Esterase Negative (Negative) U Hyaline Cast (Auto) NONE SEEN (0-2) /LPF Urine Microscopic RBC 0-2 (0-5) /HPF Urine Microscopic WBC 0-2 (0-5) /HPF Ur Epithelial Cells Few (None Seen) /HPF Urine Bacteria None Seen (None Seen) /HPF Urine Culture Reflexed NO (NO) 05/04/23 Range/Units 10:18 WBC 5.5 (4.0-10.5) x10^3/uL RBC 4.97 (4.1-5.4) x10^6/uL Hgb 15.8 (12.0-16.0) g/dL Hct 45.9 (35-47) % MCV 92.4 (78-100) fL MCH 31.8 (26-32) pg MCHC 34.4 (32-36) g/dL RDW 10.7 L (11.5-14.0) % Plt Count 320 (150-450) x10^3/uL MPV 9.7 (7.5-11.0) fL Gran % 40.0 (36.0-66.0) % Immature Gran % (Auto) 0.4 (0.00-0.4) % Nucleat RBC Rel Count 0.0 (0.00-0.1) % Eos # (Auto) 0.55 H (0-0.5) x10^3/uL Immature Gran # (Auto) 0.02 (0.00-0.03) x10^3u/L Absolute Lymphs (auto) 2.05 (1.0-4.6) x10^3/uL Absolute Monos (auto) 0.53 (0.0-1.3) x10^3/uL Absolute Nucleated RBC 0.00 (0.00-0.01) x10^3u/L Lymphocytes % 37.6 (24.0-44.0) % Monocytes % 9.7 (0.0-12.0) % Eosinophils % 10.1 H (0.00-5.0) % Basophils % 2.2 (0.0-0.4) % Absolute Granulocytes 2.18 (1.4-6.9) x10^3/uL Basophils # 0.12 (0-0.4) x10^3/uL PT (9.4-12.5) SECONDS INR (0.8-3.0) APTT (25.1-36.5) SECONDS Sodium (137-145) mmol/L Potassium (3.5-5.1) mmol/L Chloride (98-107) mmol/L Carbon Dioxide (22-30) mmol/L Anion Gap (5-15) MEQ/L BUN (7-17) mg/dL Creatinine (0.52-1.04) mg/dL Estimated GFR ML/MIN Glucose (74-106) mg/dL Calcium (8.4-10.2) mg/dL Total Bilirubin (0.2-1.3) mg/dL AST (14-36) U/L ALT (0-35) U/L Alkaline Phosphatase (38-126) U/L Serum Total Protein (6.3-8.2) g/dL Albumin (3.5-5.0) g/dL Urine Color (Yellow) Urine Appearance (Clear) Urine pH (4.6-8.0) Ur Specific Topock (1.005-1.030) Urine Protein (Negative) Urine Glucose (UA) (Negative) mg/dL Urine Ketones (Negative) Urine Blood (Negative) Urine Nitrite (Negative) Urine Bilirubin (Negative) Urine Urobilinogen (0.2) mg/dL Ur Leukocyte Esterase (Negative) U Hyaline Cast (Auto) (0-2) /LPF Urine Microscopic RBC (0-5) /HPF Urine Microscopic WBC (0-5) /HPF Ur Epithelial Cells (None Seen) /HPF Urine Bacteria (None Seen) /HPF Urine Culture Reflexed (NO) - Progress Progress: improved Progress Note: 05/04/23 16:07 Because of the suspicion this was related to the lumbar puncture she had a week and a half ago we did contact anesthesia and they were fortunate enough to be able to help us with a blood patch. After the blood patch was successfully done the patient was discharged for follow-up to her regular doctor. Blood Culture(s) Obtained: No Antibiotics given: No Medical Desision Making - Independent Historian Additional History obtained from: Spouse - Diagnostic Testing Diagnostic test were ordered, analyzed, and reviewed by me: Yes - Risk of complications Minimal Risk: Minimal risk of morbidity - Departure Departure Disposition: Home Clinical Impression: Headache after spinal puncture Condition: Stable Critical Care Time: No Referrals: WENDY CLIFFORD NP [Primary Care Provider] - Follow up/PCP as directed Instructions: Headache, Adult (DC)
[2023-05-04 10:24] LABS: Absolute Neutrophil Ct (ANC) 2.18 x10^3/uL (1.4-6.9); BASOPHIL % 2.2 % (0.0-0.4); Basophil (Absolute #) 0.12 x10^3/uL (0-0.4); Eosinophil % 10.1 % (0.00-5.0); Eosinophil (Absolute #) 0.55 x10^3/uL (0-0.5); Hematocrit 45.9 % (35-47); Hemoglobin 15.8 g/dL (12.0-16.0); IMMATURE GRAN # 0.02 x10^3u/L (0.00-0.03); IMMATURE GRAN % 0.4 % (0.00-0.4); Lymphocyte (Absolute #) 2.05 x10^3/uL (1.0-4.6); Lymphocytes % 37.6 % (24.0-44.0); Mean Cell Volume 92.4 fL (78-100); Mean Corpuscular Hemoglobin 31.8 pg (26-32); Mean Corpuscular Hgb Concent. 34.4 g/dL (32-36); Mean Platelet Volume 9.7 fL (7.5-11.0); Monocyte (Absolute #) 0.53 x10^3/uL (0.0-1.3); Monocytes % 9.7 % (0.0-12.0); Platelet Count 320 x10^3/uL (150-450); Red Blood Count 4.97 x10^6/uL (4.1-5.4); Red Cell Distribution Width 10.7 % (11.5-14.0); White Blood Count 5.5 x10^3/uL (4.0-10.5)
[2023-05-04 10:32] LABS: Appearance Clear (Clear); Bacteria None Seen /HPF (None Seen); Bilirubin Negative (Negative); Blood Negative (Negative); Epithelial Cells Few /HPF (None Seen); Glucose, Urine Negative (Negative); Hyaline Casts NONE SEEN /LPF (0-2); Ketones Negative (Negative); Leukocyte Esterase Negative (Negative); Nitrite Negative (Negative); Ph 7.5 (4.6-8.0); Protein,Urine Dip Negative (Negative); RBC 0-2 /HPF (0-5); Specific Gravity <=1.005 (1.005-1.030); Urobilinogen 0.2 mg/dL (0.2); WBC 0-2 /HPF (0-5)
[2023-05-04 10:36] LABS: ADD URINE CULTURE? NO (NO)
[2023-05-04 10:37] LABS: ANION GAP 10.8 MEQ/L (5-15); BILIRUBIN,TOTAL 0.4 mg/dL (0.2-1.3); Creatinine 1 0.76 mg/dL (0.52-1.04); EST GLOMERULAR FILTRATION RATE 108.7 ML/MIN; Potassium 4.1 mmol/L (3.5-5.1); Total Protein 8.4 g/dL (6.3-8.2)
[2023-05-04 10:39] LABS: INR 0.94 (0.8-3.0); PROTIME 10.3 SECONDS (9.4-12.5); PTT 28.5 SECONDS (25.1-36.5)
[2023-05-04] MEDS ORDERED: Sodium Chloride 0.9% 1000 ML 1,000 ML ONE (11:38)
[2023-05-04] MEDS: Sodium Chloride 0.9% 1000 ML 1,000 ML IV STA (11:39)
--- NOTE | 2023-05-04 16:41 | ANESPROCNO ---
Anesthesia Procedure Note - Anesthesia Procedure Note Procedure Date:: 05/04/23 Procedure Time:: 15:45 Anesthesia Procedure Note: Consulted to ER for a patient with a possible spinal headache. Pt examined and targeted questions asked. Pt had a diagnostic lumbar puncture 6 days ago for a new onset of seizures. Pt states she developed a SAMUELS the following day and has gotten progressively worse as time went on. Pt does exhibit a postural component to the headache in typical PDPH areas of the head and posterior neck. Pt states the SAMUELS completely resolves when laying flat. Pt tried conservative measures which failed. She was instructed by her neurologist to limit her caffeine intake because of the new onset of seizures. Explained to pt that probability of her having a PDPH is high. Pt wishes to proceed with epidural blood patch. Informed consent obtained and risks/benefits explained to pt and her . Risks include but not limited to accidental dural puncture with the epidural needle, epidural hematoma, infection causing meningitis, nerve injury, and procedure failure. Pt and spouse verbalize understanding and agree to proceed. Pt back sterile prep and drape usual fashion using betadine. Complete betadine dry time allowed. Skin wheal with 1% lidocane given for a volume of 3cc. Next an 18ga Thouy epidural needle was introduced at L3/4, one level above original LP site. Loss of resistance obtained using air technique. The autologous blood draw was completed by Spike Brandt CRNA using strict aseptic technique using betadine as a skin prep. A volume of 20cc of the patients blood was obtained and handed off to AMAIRANI Bertrand for administration through the epidural needle. The patient complained of moderate cramping in her back at a volume of 18cc, and the injection was stopped and needle withdrawn. The patient was immediately placed completely flat in the supine position. ER staff was instructed to keep the patient completely flat for one hour. At the one hour magdalena, pt's HOB is to be raised slowly 10 degrees every few minutes until the patient is sitting upright at 90 degrees. Pt evaluated at that time and with every increase of bed position. ER staff directed to notify anesthesia department if SAMUELS returned. Pt was instructed no heavy lifting more than a gallon of milk for 3 days along with no excessive twisting. Patient and spouse verbalized understanding. There were no complications and the patient tolerated the procedure well. Anesthesia service remains available for further consultation if needed. I served in a supervisory role for AMAIRANI Bertrand for the procedure. o
[2023-05-04 17:49] VITALS: BP 113/71; PULSE 69; RESP 18; O2SAT 100
== END 2023-05-04 17:51 | disposition home or self-care (01) ==
LOC: ED 09:24
DX: G97.1 Other reaction to spinal and lumbar puncture (principal); R51.0 Headache with orthostatic component, not elsewhere classified; Z79.899 Other long term (current) drug therapy
CPT/HCPCS: 36000; 36415; 62273; 80053; 81001; 85025; 85610; 85730; 99284